=== PATIENT | female | born 1985 | race African-American/Black ===

== ENCOUNTER 2016-11-14 01:27 | Inpatient (IN) | payer MEDICARE, OTHER ==
[~2016-11-14] VITALS: Ht 170.2 cm; Wt 130.6 kg
[~2016-11-14 01:27] MED LIST: ALBU1AER INH; GLIP5 PO; HALO10 PO; HALO100P IM; LISI5 PO; LITH450 PO
[2016-11-14 01:29] VITALS: BP 133/89; PULSE 77; RESP 16; TEMP 97.9; O2SAT 96
[2016-11-14] MEDS ORDERED: GLIP5 PO (03:40)
[2016-11-14] MEDS ORDERED: HALO100P IM (03:40)
[2016-11-14] MEDS ORDERED: ALBUAER3 INH (03:40)
[2016-11-14] MEDS ORDERED: LISI-519 PO (03:40)
[2016-11-14] MEDS ORDERED: LITH300T3 PO (03:40)
--- NOTE | 2016-11-14 04:09 | PD ---
HPI Chief Complaint: Psychiatric Symptoms Time Seen by Provider: 04:04 Travel History International Travel<30 days: No Contact w/Intl Traveler<30days: No Traveled to known affect area: No History of Present Illness HPI 31-year-old black female presents to emergency department requesting psychological evaluation. She states that she has a history of schizoaffective disorder. She takes Haldol decanoate shots and lithium. She states that she's been compliant with her medications. She states that she got her last shot approximately 2 weeks ago. She is noted some increase side effects of her Haldol which included movement disorder which she takes Cogentin. She also states that in the last 2 days she's had increasing auditory hallucinations. She states that she hears people talking to her. She has caught herself talking back to herself. She comes in for evaluation. She denies any bad thoughts. She states that the voices are not seeing anything intrusive or concerning. No homicidal or suicidal ideation. She states that she is merely here because of the hallucinations. PFSH Past Medical History Hx Anticoagulant Therapy: No Arthritis: No Asthma: No Autoimmune Disease: No Blood Disorders: No Bipolar Disorder: Yes Anxiety: Yes Depression: Yes Heart Rhythm Problems: No Cancer: No Cardiovascular Problems: Yes (HTN) High Cholesterol: No Chemotherapy: No Chest Pain: No Congestive Heart Failure: No COPD: No Cerebrovascular Accident: No Diabetes: Yes Patient Takes Glucophage: No Diminished Hearing: No Deep Vein Thrombosis: Yes Endocrine: Yes Gastrointestinal Disorders: No GERD: No Genitourinary: No Headaches: Yes Hepatitis: No Hiatal Hernia: No Hypertension: Yes Immune Disorder: No Implanted Vascular Access Dvce: No Musculoskeletal: No Neurologic: No Psychiatric: Yes (SCHIZOPHRENIA) Reproductive: Yes (ABD MASS, OVARIAN MASS) Respiratory: No Immunizations Current: Yes Migraines: Yes Myocardial Infarction: No Radiation Therapy: No Renal Failure: No Schizophrenia: Yes (schizoaffective) Seizures: No Sleep Apnea: No Ulcer: No Tetanus Vaccination: < 5 Years ?: Not LMP: 5 YRS AGO Menopausal: No : 1 Para: 1 Miscarriage: 0 : 0 Past Surgical History AICD: No Section: Yes (2009) Cholecystectomy: No Gynecologic Surgery: No Hysterectomy: No Joint Replacement: No Pacemaker: No Other Surgery: Yes (left salpingo oopherectomy with lysis of adhesions) Social History Alcohol Use: Yes (OCCASIONAL) Tobacco Use: Yes (1PPD) Substance Use: Yes (marijuana) Allergies-Medications (Allergen,Severity, Reaction): Coded Allergies: Penicillin (Verified Allergy, Unknown, WAS TOLD A CHILD SHE HAD A REACTION BUT UNKNOWN, 11/14/16) Reported Meds & Prescriptions Reported Meds & Active Scripts Active Reported [place] Carbonate 300 Mg Tab 900 Mg PO HS Lisinopril 5 Mg Tab 5 Mg PO DAILY Haldol Decanoate Inj (Haloperidol Decanoate) 100 Mg/Ml Inj 300 Mg IM Q28D Glucotrol (Glipizide) 5 Mg Tab 5 Mg PO DAILY Take 30 minutes before a meal Proair Hfa 8.5 GM Inh (Albuterol Sulfate) 90 Mcg/Act Aer 2 Puff INH QID PRN 108 mcg/actuation Review of Systems Except as stated in HPI: all other systems reviewed are Neg General / Constitutional: No: Fever, Chills Eyes: No: Blurred Vision, Pain HENT: No: Headaches, Sore Throat Cardiovascular: No: Chest Pain or Discomfort, Palpitations Respiratory: No: Cough, Shortness of Breath Gastrointestinal: No: Nausea, Vomiting, Abdominal Pain Genitourinary: No: Frequency, Dysuria Musculoskeletal: No: Arthralgias, Pain Skin: No Rash, No Lumps Neurologic: Positive: Tremor, No: Weakness, Paresthesia Psychiatric: Positive: Disorder of Thought, Substance Abuse, No: Anxiety, Depression, Suicidal Ideations, Mood Disorder, Homicidal Ideation Physical Exam Narrative GENERAL: Well-nourished, well-developed patient. SKIN: Warm and dry. HEAD: Normocephalic and atraumatic. EYES: No scleral icterus. No injection or drainage. ENT: No nasal drainage noted. Mucous membranes pink. Airway patent. NECK: Supple, trachea midline. Moves head freely without obvious discomfort. CARDIOVASCULAR: Regular rate and rhythm without murmurs, gallops, or rubs. RESPIRATORY: Breath sounds equal bilaterally. No accessory muscle use. Few scattered rhonchi. GASTROINTESTINAL: Abdomen soft, non-tender, nondistended. EXTREMITIES: No cyanosis or edema. BACK: Nontender without obvious deformity. No CVA tenderness. NEURO: Patient is alert and oriented. no sensorimotor deficits. Nonfocal. Normal speech. PSYCH: No delusions. Positive auditory but no visual hallucinations. Data Data Last Documented VS Vital Signs Date Time Temp Pulse Resp B/P Pulse Ox O2 Delivery O2 Flow Rate FiO2 11/14/16 01:29 97.9 77 16 133/89 96 Room Air Orders Complete Blood Count With Diff (11/14/16 04:00) Comprehensive Metabolic Panel (11/14/16 04:00) Drug Screen, Random Urine (11/14/16 04:00) Alcohol (Ethanol) (11/14/16 04:00) Salicylates (Aspirin) (11/14/16 04:00) Tylenol (Acetaminophen) (11/14/16 04:00) Psych Screen (11/14/16 04:00) [place] (Li) (11/14/16 04:00) Ed Urine Pregnancytest Poc (11/14/16 04:00) Labs Laboratory Tests Test 11/14/16 04:35 White Blood Count 8.4 TH/MM3 Red Blood Count 5.37 MIL/MM3 Hemoglobin 14.8 GM/DL Hematocrit 44.4 % Mean Corpuscular Volume 82.7 FL Mean Corpuscular Hemoglobin 27.7 PG Mean Corpuscular Hemoglobin 33.5 % Concent Red Cell Distribution Width 13.9 % Platelet Count 214 TH/MM3 Mean Platelet Volume 8.8 FL Neutrophils (%) (Auto) 49.9 % Lymphocytes (%) (Auto) 40.8 % Monocytes (%) (Auto) 5.8 % Eosinophils (%) (Auto) 2.9 % Basophils (%) (Auto) 0.6 % Neutrophils # (Auto) 4.2 TH/MM3 Lymphocytes # (Auto) 3.4 TH/MM3 Monocytes # (Auto) 0.5 TH/MM3 Eosinophils # (Auto) 0.2 TH/MM3 Basophils # (Auto) 0.1 TH/MM3 CBC Comment DIFF FINAL Differential Comment Sodium Level 139 MEQ/L Potassium Level 4.1 MEQ/L Chloride Level 103 MEQ/L Carbon Dioxide Level 30.7 MEQ/L Anion Gap 5 MEQ/L Blood Urea Nitrogen 12 MG/DL Creatinine 0.98 MG/DL Estimat Glomerular Filtration 80 ML/MIN Rate Random Glucose 113 MG/DL Calcium Level 9.4 MG/DL Total Bilirubin 0.2 MG/DL Aspartate Amino Transf 16 U/L (AST/SGOT) Alanine Aminotransferase 38 U/L (ALT/SGPT) Alkaline Phosphatase 100 U/L Total Protein 7.9 GM/DL Albumin 4.0 GM/DL Salicylates Level 3.1 MG/DL Urine Opiates Screen NEG Acetaminophen Level LESS THAN 2.0 MCG/ML Urine Barbiturates Screen NEG Urine Amphetamines Screen NEG Urine Benzodiazepines Screen NEG [place] Level 0.4 MEQ/L Urine Cocaine Screen NEG Urine Cannabinoids Screen POS Ethyl Alcohol Level LESS THAN 3 MG/DL MDM Medical Decision Making Medical Screen Exam Complete: Yes Emergency Medical Condition: Yes Medical Record Reviewed: Yes Interpretation(s) Laboratory Tests Test 11/14/16 04:35 White Blood Count 8.4 TH/MM3 Red Blood Count 5.37 MIL/MM3 Hemoglobin 14.8 GM/DL Hematocrit 44.4 % Mean Corpuscular Volume 82.7 FL Mean Corpuscular Hemoglobin 27.7 PG Mean Corpuscular Hemoglobin 33.5 % Concent Red Cell Distribution Width 13.9 % Platelet Count 214 TH/MM3 Mean Platelet Volume 8.8 FL Neutrophils (%) (Auto) 49.9 % Lymphocytes (%) (Auto) 40.8 % Monocytes (%) (Auto) 5.8 % Eosinophils (%) (Auto) 2.9 % Basophils (%) (Auto) 0.6 % Neutrophils # (Auto) 4.2 TH/MM3 Lymphocytes # (Auto) 3.4 TH/MM3 Monocytes # (Auto) 0.5 TH/MM3 Eosinophils # (Auto) 0.2 TH/MM3 Basophils # (Auto) 0.1 TH/MM3 CBC Comment DIFF FINAL Differential Comment Sodium Level 139 MEQ/L Potassium Level 4.1 MEQ/L Chloride Level 103 MEQ/L Carbon Dioxide Level 30.7 MEQ/L Anion Gap 5 MEQ/L Blood Urea Nitrogen 12 MG/DL Creatinine 0.98 MG/DL Estimat Glomerular Filtration 80 ML/MIN Rate Random Glucose 113 MG/DL Calcium Level 9.4 MG/DL Total Bilirubin 0.2 MG/DL Aspartate Amino Transf 16 U/L (AST/SGOT) Alanine Aminotransferase 38 U/L (ALT/SGPT) Alkaline Phosphatase 100 U/L Total Protein 7.9 GM/DL Albumin 4.0 GM/DL Salicylates Level 3.1 MG/DL Urine Opiates Screen NEG Acetaminophen Level LESS THAN 2.0 MCG/ML Urine Barbiturates Screen NEG Urine Amphetamines Screen NEG Urine Benzodiazepines Screen NEG [place] Level 0.4 MEQ/L Urine Cocaine Screen NEG Urine Cannabinoids Screen POS Ethyl Alcohol Level LESS THAN 3 MG/DL Differential Diagnosis MDM: High Differential diagnoses: Schizophrenia, schizoaffective disorder, bipolar, anxiety, depression, adjustment reaction, mood disorder NOS, ODD, depressive disorder NOS, dementia, dementia with agitation, psychosis NOS, substance induced mood disorder, intermittent explosive disorder, Asperger syndrome, infection,electrolyte abnormality, malingering. Narrative Course Mental health screening discussed with the patient. Psychiatric screen ordered. The patient is been medically cleared. This is schizoaffective Diagnosis Primary Impression: Schizoaffective disorder Condition: Stable Devin Kelly Nov 14, 2016 04:09
[2016-11-14 05:14] LABS: AUTOMATED NEUTROPHIL # 4.2 TH/MM3 (1.8-7.7); BASOPHIL # 0.1 TH/MM3 (0-0.2); BASOPHIL % 0.6 % (0.0-2.0); EOSINOPHIL # 0.2 TH/MM3 (0-0.4); EOSINOPHIL % 2.9 % (0.0-4.0); HEMATOCRIT 44.4 % (35.0-46.0); HEMO FLAGS DIFF FINAL; LYMPH % 40.8 % (9.0-44.0); LYMPHOCYTE # 3.4 TH/MM3 (1.0-4.8); MEAN CELL VOLUME 82.7 FL (80.0-100.0); MEAN CORPUSCULAR HEMOGLOBIN 27.7 PG (27.0-34.0); MEAN CORPUSCULAR HGB CONC 33.5 % (32.0-36.0); MONO % 5.8 % (0.0-8.0); NEUT % 49.9 % (16.0-70.0); PLATELET COUNT 214 TH/MM3 (150-450); RED BLOOD COUNT 5.37 MIL/MM3 (4.00-5.30); RED CELL DISTRIBUTION WIDTH 13.9 % (11.6-17.2); WHITE BLOOD COUNT 8.4 TH/MM3 (4.0-11.0)
[2016-11-14 05:27] LABS: AMPHETAMINE, URINE NEG (NEG); BARBITURATES, URINE NEG (NEG); COCAINE, URINE NEG (NEG)
[2016-11-14 05:32] LABS: ALT (GPT) 38 U/L (10-53); ANION GAP 5 MEQ/L (5-15); AST (GOT) 16 U/L (15-37); BICARBONATE 30.7 MEQ/L (21.0-32.0); BLOOD UREA NITROGEN 12 MG/DL (7-18); CHLORIDE 103 MEQ/L (98-107); GLOMERULAR FILTRATION RATE 80 ML/MIN (>89); POTASSIUM 4.1 MEQ/L (3.5-5.1); SODIUM (NA) 139 MEQ/L (136-145)
[2016-11-14 05:34] LABS: ALKALINE PHOSPHATASE 100 U/L (45-117); TOTAL BILIRUBIN ADULT 0.2 MG/DL (0.2-1.0)
[2016-11-14 05:46] LABS: ACETAMINOPHEN LESS THAN 2.0 MCG/ML (10.0-30.0)
[2016-11-14 07:42] VITALS: BP 162/98; PULSE 64; RESP 20; TEMP 97.4; O2SAT 98
[2016-11-14] MEDS ORDERED: traZODone HCL 50 MG TAB PO PRN (08:15)
[2016-11-14] MEDS ORDERED: MAGNESIUM HYDROXIDE SUSP 30 ML CUP PO PRN (08:15)
[2016-11-14] MEDS ORDERED: ALUMINUM/MAGNESIUM/SIMETH 30 ML CUP PO PRN (08:15)
[2016-11-14] MEDS ORDERED: LORazepam 2 MG/ML VIAL IM PRN (08:15)
[2016-11-14] MEDS ORDERED: BENZTROPINE MESYLATE 1 MG TAB PO PRN (08:15)
[2016-11-14] MEDS ORDERED: BENZTROPINE MESYLATE 2 MG/2 ML VIAL IM PRN (08:15)
[2016-11-14] MEDS ORDERED: DEXTROSE 50% IN WATER 50 ML VIAL(D50) IV PUSH PRN (08:30)
[2016-11-14] MEDS ORDERED: GLUCAGON 1 MG/ML VIAL OTHER PRN (08:30)
[2016-11-14] MEDS ORDERED: ALBUTEROL SULFATE 90 MCG/ACT HFA 8 GM INHALER INH PRN (08:30)
[2016-11-14] MEDS: LISINOPRIL 5 MG TAB PO SCH (09:00)
[2016-11-14] MEDS: REMOVE OLD PATCH T-DERMAL SCH (09:00)
[2016-11-14] MEDS: glipiZIDE 5 MG TAB PO SCH (09:00)
[2016-11-14] MEDS: NICOTINE 21 MG/24 HR PATCH T-DERMAL SCH (09:00)
[2016-11-14 10:43] VITALS: BP 133/87; PULSE 87; RESP 18; TEMP 97.5
[2016-11-14] MEDS: INSULIN ASPART SUPPLEMENTAL SCALE SQ SCH ×3 (11:00→20:31)
--- NOTE | 2016-11-14 15:48 | HHI.HP ---
History & Physical H&P Date of admission: 11/14/2016 Admitting diagnoses: 1. Schizoaffective disorder, bipolar type 2. Cannabis abuse 3. Abnormal motor activity Legal status: Patient is voluntary and may consent for admission and medications. History of present illness: Ms. Doherty is a 31-year-old female with a history of schizoaffective disorder and cannabis abuse who presented on a voluntary basis to the emergency room with complaints of side effects from her Haldol Decanoate medication and also complaints of auditory hallucinations. Reviewing the electronic medical record, I note that the patient was last admitted here under my care in July 2015. Patient seen and examined with counselor Ayesha. Chart reviewed. Case discussed with nurse on the inpatient psychiatric unit. On my examination today , the patient reports that for about the last month or so she has noted increased motoric symptoms which she relates to her Haldol injection. She maintains that she has been adherent with her Haldol injections and receives 300 mg IM every month. She has noted rocking movements of the hip and trunk as well as a jittery feeling in her feet. There is no inner sense of restlessness or feeling like she is crawling out of her skin. She has not had any dystonic reactions. She is reportedly on Cogentin for this, but see below, and this has been partially effective. The patient also notes that she has been having "conversations in my head" and notes that she has been talking to herself. She says that she hears a voice inside her head asking if she believes in God. She denies any visual phenomena. She denies any command auditory hallucinations. Mood is somewhat depressed. She denies any SI or HI. The remainder of the psychiatric ROS is negative. Past psychiatric history: Patient reports that she has been following at [facility]. She says that her last psychiatric admission was here in 2014. She denies any interval suicide attempts. I did place a call to [facility] myself to confirm her outpatient medication regimen and spoke with the nurse there. The patient apparently takes trazodone 100 mg at bedtime, lithium 900 mg at bedtime and Haldol decanoate 300 mg every 4 weeks. There is also an order for BuSpar at that dose and strength is not specified. Nurse at [facility] notes that the last time the Haldol Decanoate was filled was in August 2016 but the patient does have an appointment for injection on November 27. Family history: This is unchanged from previous assessment. Chemical dependency history: Patient admits to occasional use of cannabis but says that she hasn't smoked in a week or so. She denies any other substance use. Social history: Patient reports that she is presently living independently but has been helping out her mother who recently had an amputation. She receives a disability income. She is high school educated and also has some college. She denies any or legal history. She has a [id number] daughter. She denies any access to guns or firearms. Past medical history: Includes a history of hypertension and diabetes managed by her primary care doctor. Medications: Include psychotropics as detailed above as well as glipizide and lisinopril for the management of diabetes and hypertension, respectively. Allergies: Includes an allergy to penicillin Review of systems: Besides the motoric issues noted above, no reported headache, vision or hearing changes, chest pain, shortness of breath or bowel or bladder issues. No other somatic complaints. Physical examination: A physical examination was completed in the emergency room by the ER staff and the patient was medically cleared. On my examination today, the patient appears to be in no acute physical distress. I can detect no hand tremor, no cogwheeling, no masked facies, no dystonias. She does exhibit some occasional rocking movements at the waist and possibly some tongue darting movements, although the patient says that her mouth is just dry. No other motoric abnormalities noted. Labs and vital signs reviewed: Item Value Date Time Patient Temperature 97.5 degrees F L 11/14/16 1043 Temperature Source Oral 11/14/16 1043 Pulse Rate 87 bpm 11/14/16 1043 Respiratory Rate 18 bpm 11/14/16 1043 Blood Pressure Assessment 133/87 (102) 11/14/16 1043 Location L Arm Source Automatic Cuff Position Sitting Oxygen Delivery Method Room Air 11/14/16 0742 Bedside Pulse Oximetry 98 % 11/14/16 0742 Item Value Date Time White Blood Count 8.4 TH/MM3 11/14/16 0435 Hemoglobin 14.8 GM/DL 11/14/16 0435 Platelet Count 214 TH/MM3 11/14/16 0435 Sodium Level 139 MEQ/L 11/14/16 0435 Potassium Level 4.1 MEQ/L 1/10/17 0435 Chloride Level 103 MEQ/L 11/14/16434 Carbon Dioxide Level 30.7 MEQ/L 11/14/16434 Blood Urea Nitrogen 12 MG/DL 11/14/16434 Creatinine 0.98 MG/DL 11/14/16434 Aspartate Amino Transf (AST/SGOT) 16 U/L 11/14/16434 Alanine Aminotransferase (ALT/SGPT) 38 U/L 11/14/16434 Alkaline Phosphatase 100 U/L 11/14/16434 Beta HCG, Qualitative LESS THAN 1 MIU/ML 11/14/16434 [place] Level 0.4 MEQ/L L 11/14/16434 Urine Cannabinoids Screen POS H 11/14/16434 Ethyl Alcohol Level LESS THAN 3 MG/DL 11/14/16434 Mental status examination: Patient is in hospital gown. She is well groomed. She is awake and alert and oriented 3. Motoric exam as above. Steady gait and station. Speech is within normal limits for rate, tone and volume. Language and fund of knowledge seem adequate and appropriate for age. Mood is mildly depressed and affect is full and reactive. Thought process linear. No loosening of associations. No evident delusions. Endorses some auditory phenomena as detailed above but no visual phenomena and no command auditory hallucinations. Denies suicidal or homicidal ideation. Insight and judgment are fair. Assessment and plan: This is a 31-year-old female with psychiatric history as detailed above who presents on a voluntary basis with complaints about psychotropic medication side effects and also auditory phenomena. Patient describes rocking movements of the trunk for about the last month or so in the absence of significant medication change and on exam does display some rocking as well as some possible tongue darting that could be related to a tardive dyskinesia picture. There is no evidence of EPS or akathisia on my history or exam. She also describes some mood issues and auditory phenomena, although it is not clear if these are antonella javier auditory hallucinations as they seem to occur exclusively inside her head. Patient seems to have experienced a significant, positive response to Haldol, and has managed a significant period outside of the hospital. I will ask the neurologist to evaluate the patient's movment complaints. If this does indeed represent TD, augmentation with low dose clozapine might ameliorate both the movement and psychiatric symptoms and allow us to reduce her Haldol burden. Patient requires psychiatric admission at this time for assessment, observation and stabilization. --Admit inpatient --Voluntary status --Consult to the neurologist regarding patient's movement issues --Continue patient's lithium at bedtime. Renal function okay. test negative. Check a TSH. --Continue patient's trazodone at bedtime --Clarify patient's BuSpar dosing --Clarify last dose of Haldol Decanoate --Ativan as needed for anxiety, Cogentin as needed for EPS, Benadryl as needed for sleep --Vitals every shift --Counselor to see --Disposition planning --Estimated length of stay: 5-7 days Adria Gu MD Nov 14, 2016 15:47
[2016-11-14 18:52] VITALS: BP 150/79; PULSE 76; RESP 18; TEMP 97.3; O2SAT 99
[2016-11-14] MEDS: LITHIUM CARBONATE 450 MG CONTROLLED RELEASE TAB PO SCH (20:31)
[2016-11-14] MEDS: traZODone HCL 50 MG TAB PO SCH (20:31)
[2016-11-14] MEDS: ACETAMINOPHEN 325 MG TAB PO PRN (20:36)
[2016-11-15] MEDS: LORazepam 1 MG TAB PO PRN ×3 (01:59→21:38)
[2016-11-15] MEDS: ACETAMINOPHEN 325 MG TAB PO PRN (04:12)
[2016-11-15 05:43] VITALS: BP 140/96; PULSE 70; RESP 18; TEMP 96.9; O2SAT 99
[2016-11-15] MEDS: INSULIN ASPART SUPPLEMENTAL SCALE SQ SCH ×6 (06:26→21:34)
[2016-11-15 06:58] LABS: ANION GAP 7 MEQ/L (5-15); BICARBONATE 28.9 MEQ/L (21.0-32.0); BLOOD UREA NITROGEN 13 MG/DL (7-18); CHLORIDE 103 MEQ/L (98-107); GLOMERULAR FILTRATION RATE 90 ML/MIN (>89); HDL CHOLESTEROL 61.6 MG/DL (40.0-60.0); LDL CHOLESTEROL 67 MG/DL (0-99); POTASSIUM 4.6 MEQ/L (3.5-5.1); SODIUM (NA) 139 MEQ/L (136-145)
[2016-11-15] MEDS: REMOVE OLD PATCH T-DERMAL SCH (09:00)
[2016-11-15] MEDS: LISINOPRIL 5 MG TAB PO SCH (09:01)
[2016-11-15] MEDS: glipiZIDE 5 MG TAB PO SCH (09:01)
[2016-11-15] MEDS: NICOTINE 21 MG/24 HR PATCH T-DERMAL SCH (09:03)
--- NOTE | 2016-11-15 13:30 | HHI.PYPN ---
Subjective Remarks Patient seen and examined with counselor. Chart reviewed. Case discussed with nursing staff. No behavioral issues noted. On my examination today, patient complains of some ongoing low mood. She continues to describe auditory phenomena of her siblings asking if she believes in God. She also continues to report abnormal truncal movements as detailed yesterday. No change in these. Denies side effects from medications. Neurological consultation has been ordered and is pending. Review of Systems Other No new physical complaints today Objective Alert: Yes [place]: Person, Place, Date, Situation Mood: Depressed Affect: Other (remains fairly full and reactive) Memory Intact: Comment (intact on clinical exam) Hallucinations: Auditory (auditory phenomena as detailed above), Visual (no VH) Delusions: No Delusion Type: Other (no delusions) Suicidal: Ideation (no SI) Homicidal: Ideation (no HI) Insight/Judgement Fair Remarks No new motoric abnormalities noted. Patient preferred to stand for the interview, and in this position I do not really appreciate any dyskinesias in the trunk. Thought process linear. Speech within normal limits for rate, tone and volume. Labs Test 11/15/16 06:06 Sodium Level 139 MEQ/L Potassium Level 4.6 MEQ/L Chloride Level 103 MEQ/L Carbon Dioxide Level 28.9 MEQ/L Anion Gap 7 MEQ/L Blood Urea Nitrogen 13 MG/DL Creatinine 0.88 MG/DL Estimat Glomerular Filtration 90 ML/MIN Rate Random Glucose 134 MG/DL Calcium Level 9.4 MG/DL Triglycerides Level 124 MG/DL Cholesterol Level 153 MG/DL LDL Cholesterol 67 MG/DL HDL Cholesterol 61.6 MG/DL Cholesterol/HDL Ratio 2.48 RATIO Labs reviewed. TSH within normal limits. Hemoglobin A1c is pending. Vitals/IOs Vital Signs Date Time Temp Pulse Resp B/P Pulse Ox O2 Delivery O2 Flow Rate FiO2 11/15/16 05:43 96.9 70 18 140/96 99 11/14/16 07:42 Room Air Assessment & Plan Problem List: (1) Schizoaffective disorder ICD Code: F25.9 (2) Abnormal motor activity ICD Code: R25.9 Assessment & Plan Patient continuing to complain of abnormal movements and depressive symptoms. Neurological consultation is pending. We discuss the risks and benefits of a trial of a minimally anti-dopaminergic antipsychotic to try to ameliorate patient's perceived movement symptoms, proceeding on the impression that these are dyskinetic in nature, and also possibly for mood stabilization. I did discuss Clozaril as an option, but the patient is reluctant to pursue this given the blood monitoring requirements. Seroquel might be a good alternative as it too is minimally anti-dopaminergic and has some data supporting its use to ameliorate TD, and it also has mood stabilizing potential. Patient prefers this option, and I will add Seroquel 25mg BID with plans to titrate to effect. Continue other medications and care as ordered. Justification for Cont. Inpt. Medication adjustments. Complicating conditions. Discharge Planning Pending stabilization Request HC Surrog/Guard Advoc?: No Problem Qualifiers (1) Schizoaffective disorder: Qualified Code: F25.0 - Schizoaffective disorder, bipolar type Adria Gu MD Nov 15, 2016 13:30
[2016-11-15] MEDS: IBUPROFEN 400 MG TAB PO PRN (16:16)
--- NOTE | 2016-11-15 16:38 | PD.CONS ---
History of Present Illness Service Neurology Consult Requested By psych Reason for Consult tardive dyskinesia Primary Care Physician Aj Garcia MD History of Present Illness 31 y/o f admitted for psychosis, in the psych unit. pt has been on injectable haldol for the past few months and states she was getting tremors and truncal movements recently. she is doing better since admission. reading the newspaper when i came in to see her. Past Family Social History Allergies: Coded Allergies: Penicillin (Verified Allergy, Unknown, WAS TOLD A CHILD SHE HAD A REACTION BUT UNKNOWN, 11/14/16) Active Ordered Medications Current Medications Medications (Trade) Dose Ordered Sig/Darrion Route Start Time Stop Time Status Last Admin (Ativan) 1 mg Q6H PRN PO 11/14/16 08:15 11/15/16 09:01 (Ativan Inj) 1 mg Q6H PRN IM 11/14/16 08:15 (Milk Of Magnesia Liq) 30 ml DAILY PRN PO 11/14/16 08:15 (Mag-Al Plus Susp Liq) 30 ml Q6H PRN PO 11/14/16 08:15 (Habitrol 21 Mg Patch.24 Hr) 1 patch DAILY T-DERMAL 11/14/16 09:00 11/15/16 09:03 (Cogentin) 1 mg Q12H PRN PO 11/14/16 08:15 (Cogentin Inj) 1 mg Q12H PRN IM 11/14/16 08:15 Miscellaneous Information 1 DAILY T-DERMAL 11/14/16 09:00 11/14/16 09:00 (Proair Hfa Inh) 2 puff QID PRN INH 11/14/16 08:30 (Glucotrol) 5 mg DAILY PO 11/14/16 09:00 11/15/16 09:01 (Prinivil) 5 mg DAILY PO 11/14/16 09:00 11/15/16 09:01 (D50w (Vial) Inj) 25 ml UNSCH PRN IV PUSH 11/14/16 08:30 (Glucagon Inj) 1 mg UNSCH PRN OTHER 11/14/16 08:30 (Desyrel) 100 mg HS PO 11/14/16 21:00 11/14/16 20:31 (Eskalith Sr) 900 mg HS PO 11/14/16 21:00 11/14/16 20:31 (Benadryl) 50 mg HS PRN PO 11/14/16 16:00 11/15/16 00:00 (SEROquel) 25 mg BID PO 11/15/16 21:00 (Motrin) 400 mg Q8H PRN PO 11/15/16 16:00 Family History htn, dm Social History denies illicit drug use, tob or etoh use at present Exam I&O / VS Vital Signs Date Time Temp Pulse Resp B/P Pulse Ox O2 Delivery O2 Flow Rate FiO2 11/15/16 05:43 96.9 70 18 140/96 99 11/14/16 18:52 97.3 76 18 150/79 99 General: No acute distress Eye: EOMI Respiratory: Non-labored respirations Neurologic: Alert, Oriented, CN II-XII intact Psychiatric: Cooperative, Appropriate mood & affect Exam Comments ox 3. follows motor request, mild facial hypomimia, sitting and was reading the paper when i saw her. no involuntary movements. no resting/postural tremor. mild ue rigidity, no focal weakness Review/Management Diagnosis/Plan: (1) Schizophrenia Plan: no involuntary movements observed, no tardive dyskinesia minimal parkinsonism on exam likely 2/2 dopamine blocking agents rec limit/avoid long-term anti-psychotic use as much as possible. alternative to haldol if possible. note she is now in lithium, seroquel and cogentin she appears to be doing better since psych md has changed her medications will sign off call if questions Problem Qualifiers (1) Schizophrenia: Qualified Code: F20.9 - Schizophrenia, unspecified type Heron Ramos MD Nov 15, 2016 16:38
[2016-11-15 17:15] LABS: HEMOGLOBIN A1a 1.3 %; HEMOGLOBIN Ao 82.9 %; HEMOGLOBIN F 1.9 %; HEMOGLOBIN LA1C 2.1 %; HEMOGLOBIN P3 3.8 %
[2016-11-15 19:27] VITALS: BP 119/77; PULSE 80; RESP 18; TEMP 97.4; O2SAT 100
[2016-11-15] MEDS: QUEtiapine FUMARATE 25 MG TAB PO SCH (21:00)
[2016-11-15] MEDS: LITHIUM CARBONATE 450 MG CONTROLLED RELEASE TAB PO SCH (21:00)
[2016-11-15] MEDS: traZODone HCL 50 MG TAB PO SCH (21:00)
[2016-11-15] MEDS: diphenhydrAMINE HCL 50 MG CAP PO PRN ×2 (21:38)
[2016-11-16 05:00] VITALS: BP 126/66; PULSE 76; RESP 17; TEMP 97.9
[2016-11-16] MEDS: INSULIN ASPART SUPPLEMENTAL SCALE SQ SCH ×3 (06:15→21:00)
[2016-11-16] MEDS: REMOVE OLD PATCH T-DERMAL SCH (09:00)
[2016-11-16] MEDS: glipiZIDE 5 MG TAB PO SCH (09:25)
[2016-11-16] MEDS: NICOTINE 21 MG/24 HR PATCH T-DERMAL SCH (09:25)
[2016-11-16] MEDS: QUEtiapine FUMARATE 25 MG TAB PO SCH ×3 (09:25→18:36)
[2016-11-16] MEDS: LISINOPRIL 5 MG TAB PO SCH (09:25)
--- NOTE | 2016-11-16 10:53 | HHI.PYPN ---
Subjective Remarks Patient seen and examined with counselor. Chart reviewed. Case discussed with nursing staff. On my examination today, patient complains of mild ongoing low mood but denies audiovisual hallucinations. She denies any subjective involuntary movements and I see that she has been evaluated by neurology who does not suspect tardive dyskinesia. No SI or HI. She denies side effects from medications. Review of Systems Other No reported physical complaints today Objective Alert: Yes [place]: Person, Place, Date, Situation Mood: Depressed (very mild) Affect: Other (full and reactive) Memory Intact: Comment (intact on clinical exam) Hallucinations: Other (denies AVH) Delusions: No Delusion Type: Other (no delusional material) Suicidal: Ideation (denies SI) Homicidal: Ideation (denies HI) Insight/Judgement Fair Remarks No motoric abnormalities noted. Thought process linear. Speech within normal limits For rate, tone and volume. Labs Test 11/16/16 06:52 [place] Level 0.6 MEQ/L Labs reviewed. Vitals/IOs Vital Signs Date Time Temp Pulse Resp B/P Pulse Ox O2 Delivery O2 Flow Rate FiO2 11/16/16 05:00 97.9 76 17 126/66 11/15/16 19:27 100 11/14/16 07:42 Room Air Assessment & Plan Problem List: (1) Schizoaffective disorder ICD Code: F25.9 Assessment & Plan Titrate Seroquel for additional mood stabilization. The hope is that this will also allow for a reduction in Haldol decanoate dose in the long-term. Patient maintains that she is on Wellbutrin on an outpatient basis but I will hold this is this could also be contributing to a sense of jitteriness. Continue other psychotropics as ordered. Neurology consultation noted and appreciated. Continue other medications and care as ordered. Justification for Cont. Inpt. Medication adjustments. Discharge Planning Monitor overnight. Request HC Surrog/Guard Advoc?: No Problem Qualifiers (1) Schizoaffective disorder: Qualified Code: F25.0 - Schizoaffective disorder, bipolar type Adria Gu MD Nov 16, 2016 10:53
[2016-11-16 18:41] VITALS: BP 130/87; PULSE 79; RESP 18; TEMP 97.8; O2SAT 96
[2016-11-16] MEDS: traZODone HCL 50 MG TAB PO SCH (21:21)
[2016-11-16] MEDS: LITHIUM CARBONATE 450 MG CONTROLLED RELEASE TAB PO SCH (21:21)
[2016-11-16] MEDS: diphenhydrAMINE HCL 50 MG CAP PO PRN (21:25)
[2016-11-16] MEDS: IBUPROFEN 400 MG TAB PO PRN (23:00)
[2016-11-17] MEDS: LORazepam 1 MG TAB PO PRN (04:26)
[2016-11-17 06:26] VITALS: BP 122/84; PULSE 83; RESP 18; TEMP 97.4; O2SAT 99
[2016-11-17] MEDS: INSULIN ASPART SUPPLEMENTAL SCALE SQ SCH ×3 (06:47→16:00)
[2016-11-17] MEDS: LISINOPRIL 5 MG TAB PO SCH (08:17)
[2016-11-17] MEDS: QUEtiapine FUMARATE 25 MG TAB PO SCH ×3 (08:17→17:51)
[2016-11-17] MEDS: glipiZIDE 5 MG TAB PO SCH (08:17)
[2016-11-17] MEDS: NICOTINE 21 MG/24 HR PATCH T-DERMAL SCH (08:18)
[2016-11-17] MEDS: REMOVE OLD PATCH T-DERMAL SCH (08:18)
[2016-11-17] MEDS ORDERED: TRAZ50TA12 PO (09:51)
[2016-11-17] MEDS ORDERED: QUET1TAB7 PO (09:51)
--- NOTE | 2016-11-17 09:52 | HHI.DS ---
Psychiatry Discharge Summary Inpatient Psychiatric care?: Yes Advance Directive: No Reason Not Provided: not done Mental Health AdvanceDirective: No Health Care Proxy: No Admission Admission Date Nov 14, 2016 at 08:15 Admission Diagnosis: (1) Schizoaffective disorder ICD Code: F25.9 (2) Cannabis abuse ICD Code: F12.10 (3) Abnormal motor activity ICD Code: R25.9 Brief History Ms. Doherty is a 31-year-old female with a history of schizoaffective disorder and cannabis abuse who presented on a voluntary basis to the emergency room with complaints of side effects from her Haldol Decanoate medication and also complaints of auditory hallucinations. Reviewing the electronic medical record, I note that the patient was last admitted here under my care in July 2015. Patient seen and examined with counselor Ayesha. Chart reviewed. Case discussed with nurse on the inpatient psychiatric unit. On my examination today , the patient reports that for about the last month or so she has noted increased motoric symptoms which she relates to her Haldol injection. She maintains that she has been adherent with her Haldol injections and receives 300 mg IM every month. She has noted rocking movements of the hip and trunk as well as a jittery feeling in her feet. There is no inner sense of restlessness or feeling like she is crawling out of her skin. She has not had any dystonic reactions. She is reportedly on Cogentin for this, but see below, and this has been partially effective. The patient also notes that she has been having "conversations in my head" and notes that she has been talking to herself. She says that she hears a voice inside her head asking if she believes in God. She denies any visual phenomena. She denies any command auditory hallucinations. Mood is somewhat depressed. She denies any SI or HI. The remainder of the psychiatric ROS is negative. Tobacco Use In Past 30 Days: 5 or More Cigarettes/Day Alcohol Use: Never Hospital Course Patient was admitted to a locked, inpatient psychiatric unit. A neurological consultation was obtained for patient's complaints of abnormal movements, but no significant abnormality was found and neurologist did not feel that the patient had significant tardive dyskinesia. Appropriate precautions were in place throughout patient's hospital stay. Patient was seen and examined daily on the unit by psychiatry and also visited by counselor. Medications were adjusted. Patient tolerated medication changes well without side effects. Patient had improvement in her presenting psychiatric symptomatology. Her subjective perception of movements also improved. There was no evidence of any suicidality or homicidality on the inpatient unit. Patient remained in good behavioral control and was medication compliant. On the day of discharge: Patient seen and examined with counselor. Case discussed with nursing staff. No problematic behaviors to note. On my examination today, the patient reports that her mood is improved versus admission. She denies any SI, HI or AVH. No evidence of unstable psychosis. Tolerating medications well without side effects. Feels improved with addition of Seroquel. No physical complaints today. Weighing the acute, chronic, and protective factors and based on the available evidence, I supreme court judge to a reasonable degree of medical certainty that the patient is at low imminent risk of harm to self or others from mental illness and her level of function appears to be adequate for outpatient care. Patient has maximized benefit from this inpatient psychiatric hospital stay will be discharged today in stable condition with psychiatric follow-up as arranged by counselor. Patient is also to follow-up with primary care. I have reminded the patient to return to the psychiatric emergency room for any concerning psychiatric symptoms as part of a general safety plan. Results Blood Pressure 122 / 84 Vital Signs Date Time Temp Pulse Resp B/P Pulse Ox O2 Delivery O2 Flow Rate FiO2 11/17/16 06:26 97.4 83 18 122/84 99 11/14/16 07:42 Room Air Laboratory Tests Test 11/15/16 06:06 Random Glucose 134 MG/DL (74-106) Hemoglobin A1c 6.5 % (4.3-6.0) HDL Cholesterol 61.6 MG/DL (40.0-60.0) Laboratory Results Test 11/15/16 11/16/16 06:06 06:52 Hemoglobin A1c 6.5 % (4.3-6.0) Triglycerides Level 124 MG/DL (42-150) Cholesterol Level 153 MG/DL (120-200) LDL Cholesterol 67 MG/DL (0-99) HDL Cholesterol 61.6 MG/DL (40.0-60.0) [place] Level 0.6 MEQ/L (0.5-1.5) Summary of Procedures None done Imaging None done Pending results at discharge: No Medications # of Antipsychotic meds at D/C: 2 Appropriate >1 Antipsych meds?: 4 Approp Antipsych med options 1 - Minimum of three failed multiple trials of monotherapy. 2 - Documented plan to taper to monotherapy due to previous use of multiple meds OR cross-taper in progress at D/C. 3 - Documentation of augmentation of Clozapine. 4 - Justification other than those listed in allowable values 1-3, document here : Addition of minimally anti-dopaminergic antipsychotic to high-dose Haldol. Discharge Discharge Date: Nov 17, 2016 Discharge Diagnosis: (1) Schizoaffective disorder Diagnosis: Principal (stable) ICD Code: F25.9 (2) Cannabis abuse Diagnosis: Secondary ICD Code: F12.10 (3) Abnormal motor activity Diagnosis: Secondary (resolved) ICD Code: R25.9 GAF on discharge is 60 Mental Status Exam at Disch Patient is in hospital gown. She is well groomed. She is awake and alert and oriented to person and hospital at least. No abnormal motor movements noted. Speech is within normal limits for rate, tone and volume. Language and fund of knowledge seem adequate and appropriate for age. Mood is improved versus admission and affect is bright, full and reactive. Thought process linear. No loosening of associations. No evident delusions. Denies audiovisual hallucinations. Denies suicidal or homicidal ideation. Insight and judgment are fair. Pt Condition on Discharge: Stable Discharge Disposition: Discharge Home Discharge Instructions Diet Instructions: Diabetic Diet Activities you can perform: Weight Bearing as [place] Scheduled Appointment: as per counselor's notes New Medications: Quetiapine (Quetiapine) 25 Mg Tab 25 MG PO TID Mental Health Days 15 Ref 1 TAB Trazodone (Trazodone) 50 Mg Tab 100 MG PO HS Order is to update med rec only. Pt has supply at home. Mental Health Days 0 Ref 0 TAB Continued Medications: Albuterol 8.5 GM Inh (Proair Hfa 8.5 GM Inh) 90 Mcg/Act Aer 2 PUFF INH QID 108 mcg/actuation PRN SHORTNESS OF BREATH #1 Ref 0 INHALER Glipizide (Glucotrol) 5 Mg Tab 5 MG PO DAILY Take 30 minutes before a meal Blood Sugar Management #30 Ref 0 TAB Haloperidol Decanoate Inj (Haldol Decanoate Inj) 100 Mg/Ml Inj 300 MG IM Q28D Schizophrenia #1 Ref 0 VIAL Lisinopril (Lisinopril) 5 Mg Tab 5 MG PO DAILY Blood Pressure Management #30 Ref 0 TAB [place] Carbonate ([place] Carbonate) 300 Mg Tab 900 MG PO HS Ref 0 TAB Discharge Time <= 30 minutes Discharge/Advance Care Plan Health Problems: (1) Schizoaffective disorder Goals to promote your health * To prevent worsening of your condition and complications * To maintain your health at the optimal level Directions to meet your goals Take your medications as prescribed Follow your dietary instruction Follow activity as directed Keep your appointments as scheduled Take your immunizations and boosters as scheduled If your symptoms worsen call your PCP, if no PCP go to Urgent Care Center or Emergency Room For 28/05 questions related to your inpatient stay or results of tests pending at discharge, please contact Dr. Adria Gu at Smoking is Dangerous to Your Health. Avoid second hand smoking Problem Qualifiers (1) Schizoaffective disorder: Qualified Code: F25.0 - Schizoaffective disorder, bipolar type Adria Gu MD Nov 17, 2016 09:52
== END 2016-11-17 18:00 | disposition home or self-care (01) | DRG 885 ==
LOC: NEPB 01:27 → NEDA 08:15 → H270 09:50
PROVIDERS: ADMIT Psychiatry & Neurology Psychiatry; ATTEND Psychiatry & Neurology Psychiatry
DX: F25.0 Schizoaffective disorder, bipolar type (principal); E11.9 Type 2 diabetes mellitus without complications; I10 Essential (primary) hypertension; F12.10 Cannabis abuse, uncomplicated; Z79.84 Long term (current) use of oral hypoglycemic drugs; Z88.0 Allergy status to penicillin; R25.9 Unspecified abnormal involuntary movements; F17.210 Nicotine dependence, cigarettes, uncomplicated
CPT/HCPCS: 80048; 80053; 80061; 80178; 80307; 80320; 80329; 82948; 83036; 84443; 84703; 85025; 99285; G0480; G0481; J1815; Q0163

== ENCOUNTER 2017-01-08 13:50 | Emergency (ER) | payer MEDICARE, OTHER ==
[~2017-01-08 13:50] MED LIST changes: -ALBU1AER INH; +ALBUAER3 INH; -HALO10 PO; +LISI-519 PO; -LISI5 PO; +LITH300T3 PO; -LITH450 PO; +QUET1TAB7 PO; +TRAZ50TA12 PO
[2017-01-08 13:51] VITALS: BP 158/95; PULSE 102; RESP 18; TEMP 99.5; O2SAT 98
== END 2017-01-08 16:16 | disposition left against medical advice (07) ==
LOC: NED 13:50
DX: R50.9 Fever, unspecified (principal)
CPT/HCPCS: 99281

== ENCOUNTER 2017-07-07 17:13 | Emergency (ER) | payer MEDICARE, OTHER ==
[~2017-07-07] VITALS: Ht 170.2 cm; Wt 140.0 kg
[2017-07-07 17:16] VITALS: BP 137/85; PULSE 96; RESP 15; TEMP 98.2; O2SAT 98
--- NOTE | 2017-07-07 17:28 | PD ---
HPI Chief Complaint: Cold / Flu Symptoms Time Seen by Provider: 17:27 Travel History International Travel<30 days: No Contact w/Intl Traveler<30days: No Traveled to known affect area: No History of Present Illness HPI 32-year-old female came to the emergency room with history of cough that's been going on for past 1 month. Patient smokes one pack of cigarettes per day. No history of fever or chills. She says at this point the cough is so bad that she has been unable to stop coughing and has had posttussive emesis. Vital signs are stable. The cough is mostly dry she says. No phlegm. PFSH Past Medical History Narrative Medical List of her past medical, surgical, social and family history is reviewed from the nursing note. Hx Anticoagulant Therapy: No Arthritis: No Asthma: No Autoimmune Disease: No Blood Disorders: No Bipolar Disorder: Yes Anxiety: Yes Depression: Yes Heart Rhythm Problems: No Cancer: No Cardiovascular Problems: Yes (HBP) High Cholesterol: No Chemotherapy: No Chest Pain: No Congestive Heart Failure: No COPD: No Cerebrovascular Accident: No Diabetes: Yes Patient Takes Glucophage: No Diminished Hearing: No Deep Vein Thrombosis: Yes Endocrine: Yes Gastrointestinal Disorders: No GERD: No Genitourinary: No Headaches: No Hepatitis: No Hiatal Hernia: No Hypertension: Yes Immune Disorder: No Implanted Vascular Access Dvce: No Musculoskeletal: No Neurologic: No Psychiatric: Yes Reproductive: No Respiratory: No Immunizations Current: Yes Migraines: Yes Myocardial Infarction: No Radiation Therapy: No Renal Failure: No Schizophrenia: Yes (schizoaffective) Seizures: No Sleep Apnea: No Ulcer: No Tetanus Vaccination: > 5 Years Influenza Vaccination: No ?: Not LMP: 05/19/17 Menopausal: No : 1 Para: 1 Miscarriage: 0 : 0 Past Surgical History Abdominal Surgery: No AICD: No Arteriovenous Shunt: No Cardiac Surgery: No Section: Yes (2009) Cholecystectomy: No Ear Surgery: No Endocrine Surgery: Yes Eye Surgery: No Genitourinary Surgery: No Gynecologic Surgery: Yes () Hysterectomy: No Insulin Pump: No Joint Replacement: No Oral Surgery: No Pacemaker: No Thoracic Surgery: No Other Surgery: Yes (left salpingo oopherectomy with lysis of adhesions) Social History Alcohol Use: Yes (OCCASIONAL) Tobacco Use: Yes (1PPD) Substance Use: No Allergies-Medications (Allergen,Severity, Reaction): Coded Allergies: penicillin G (Unverified Allergy, Intermediate, hives, 07/07/17) Comments List of her allergies reviewed from the nursing note. Reported Meds & Prescriptions Reported Meds & Active Scripts Active Ventolin Hfa 18 GM Inh (Albuterol Sulfate) 90 Mcg/Act Aer 2 Puff INH Q4-6H PRN Trazodone (Trazodone HCl) 50 Mg Tab 100 Mg PO HS 0 Days Order is to update med rec only. Pt has supply at home. Quetiapine (Quetiapine Fumarate) 25 Mg Tab 25 Mg PO TID 15 Days Reported Lisinopril 5 Mg Tab 5 Mg PO DAILY Haldol Decanoate Inj (Haloperidol Decanoate) 100 Mg/Ml Inj 300 Mg IM Q28D Glucotrol (Glipizide) 5 Mg Tab 5 Mg PO DAILY Take 30 minutes before a meal Narrative Medication List of her home medications reviewed from the nursing note. Review of Systems Except as stated in HPI: all other systems reviewed are Neg Physical Exam Narrative GENERAL: Awake, alert, morbidly obese, no obvious distress SKIN: Focused skin assessment warm/dry. HEAD: Atraumatic. Normocephalic. EYES: Pupils equal and round. No scleral icterus. No injection or drainage. ENT: No nasal bleeding or discharge. Mucous membranes pink and moist. NECK: Trachea midline. No JVD. CARDIOVASCULAR: Regular rate and rhythm. No murmur appreciated. RESPIRATORY: No accessory muscle use. Clear to auscultation. Breath sounds equal bilaterally. GASTROINTESTINAL: Abdomen soft, non-tender, nondistended. Hepatic and splenic margins not palpable. MUSCULOSKELETAL: No obvious deformities. No clubbing. No cyanosis. No edema. NEUROLOGICAL: Awake and alert. No obvious cranial nerve deficits. Motor grossly within normal limits. Normal speech. PSYCHIATRIC: Appropriate mood and affect; insight and judgment normal. Data Data Last Documented VS Vital Signs Date Time Temp Pulse Resp B/P (MAP) Pulse Ox O2 Delivery O2 Flow Rate FiO2 07/07/17 19:17 07/07/17 17:22 18 99 Room Air 07/07/17 17:16 98.2 96 Orders Orders Chest, Pa & Lat (07/07/17 ) [facility] Medical Decision Making Medical Screen Exam Complete: Yes Emergency Medical Condition: Yes Medical Record Reviewed: Yes Differential Diagnosis Bronchitis, smoking cessation, atypical pneumonitis Narrative Course 7 PM chest x-ray finding came back and is within normal limits. She'll be discharged home. She was given instructions by me to stop smoking in order to get completely better. She understands. Procedures EKG Prior to Arrival: No Diagnosis Primary Impression: Bronchitis Additional Impressions: Needs smoking cessation education Chronic cough Referrals: Primary Care Physician Additional Instructions: Use inhaler prescribed to you 2 puffs every 4-6 hours for next 24-48 hours. To that use as per the symptoms. You must stop smoking otherwise a cough will not completely get better. Follow up with your primary care. Med/Other Pt SpecificInfo: Prescription(s) given Scripts Albuterol 18 GM Inh (Ventolin Hfa 18 GM Inh) 90 Mcg/Act Aer 2 PUFF INH Q4-6H Y for SHORTNESS OF BREATH, #1 INHALER 0 Refills Prov: Chris Lewis MD 07/07/17 Disposition: 01 DISCHARGE HOME Condition: Stable Chris Lewis MD Jul 07, 2017 17:28
--- NOTE | 2017-07-07 19:01 | RADRPT ---
EXAM DATE/TIME: 07/07/2017 18:04 [place] COMPARISON: CHEST PA & LAT, November 19, 2013, 10:22. INDICATIONS : Cough MEDICAL HISTORY : None. SURGICAL HISTORY : None. ENCOUNTER: Initial ACUITY: 1 day PAIN SCORE: 5/10 LOCATION: Bilateral chest FINDINGS: PA and lateral views of the chest demonstrate the lungs to be symmetrically aerated without evidence of mass, infiltrate or effusion. The cardiomediastinal contours are unremarkable. Osseous structure s are intact. CONCLUSION: No acute disease. Lobito Limon MD FACR on July 07, 2017 at 18:59 Board Certified Radiologist. This report was verified electronically.
[2017-07-07] MEDS ORDERED: VENTAER INH (19:06)
== END 2017-07-07 19:18 | disposition home or self-care (01) ==
LOC: NEPD 17:13
DX: J40 Bronchitis, not specified as acute or chronic (principal); F17.210 Nicotine dependence, cigarettes, uncomplicated
CPT/HCPCS: 71020; 99283

== ENCOUNTER 2018-03-22 17:23 | Inpatient (IN) | payer MEDICARE, OTHER ==
[~2018-03-22] VITALS: Ht 170.2 cm; Wt 128.3 kg
[~2018-03-22 17:23] MED LIST changes: -ALBUAER3 INH; -LITH300T3 PO; +VENTAER INH
[2018-03-22 17:45] VITALS: BP 131/99; PULSE 97; RESP 20; TEMP 98.9
--- NOTE | 2018-03-22 17:54 | PD ---
HPI Chief Complaint: Psychiatric Symptoms Time Seen by Provider: 17:36 Travel History International Travel<30 days: No Contact w/Intl Traveler<30days: No Traveled to known affect area: No History of Present Illness HPI 33-year-old female presents to the emergency department under expert take her order for psychiatric evaluation. Court order was written by her mother and sisters. They state that she has been using drugs and has been delusional. The patient denies any thoughts of hurting herself or anybody else. She states she was taking metformin and hypertension medications, but is not taking them now. She does state that she is buying methadone off the street. She also states that people are spiking her drinks with illicit drugs. Patient has no medical complaints at this time. Patient is alert and oriented to person, place , time. Moderate severity peer PFSH Past Medical History Hx Anticoagulant Therapy: No Arthritis: No Asthma: No Autoimmune Disease: No Blood Disorders: No Bipolar Disorder: Yes Anxiety: Yes Depression: Yes Heart Rhythm Problems: No Cancer: No Cardiovascular Problems: Yes (heart murmur) High Cholesterol: No Chemotherapy: No Chest Pain: No Congestive Heart Failure: No COPD: No Cerebrovascular Accident: No Diabetes: Yes Diminished Hearing: No Deep Vein Thrombosis: Yes Endocrine: Yes Gastrointestinal Disorders: No GERD: No Genitourinary: No Headaches: No Hepatitis: No Hiatal Hernia: No Hypertension: Yes Immune Disorder: No Implanted Vascular Access Dvce: No Musculoskeletal: No Neurologic: No Psychiatric: Yes Reproductive: No Respiratory: No Immunizations Current: Yes Migraines: Yes Myocardial Infarction: No Radiation Therapy: No Renal Failure: No Schizophrenia: Yes (schizoaffective) Seizures: No Sleep Apnea: No Ulcer: No ?: Unknown Menopausal: No : 1 Para: 1 Miscarriage: 0 : 0 Past Surgical History Abdominal Surgery: No AICD: No Arteriovenous Shunt: No Cardiac Surgery: No Section: Yes (2009) Cholecystectomy: No Ear Surgery: No Endocrine Surgery: Yes Eye Surgery: No Genitourinary Surgery: No Gynecologic Surgery: Yes () Hysterectomy: No Insulin Pump: No Joint Replacement: No Oral Surgery: No Pacemaker: No Thoracic Surgery: No Other Surgery: Yes (left salpingo oopherectomy with lysis of adhesions) Social History Alcohol Use: Yes (OCCASIONAL) Tobacco Use: Yes (1PPD) Substance Use: No Allergies-Medications (Allergen,Severity, Reaction): Coded Allergies: penicillin G (Unverified Allergy, Intermediate, hives, 07/07/17) Reported Meds & Prescriptions Reported Meds & Active Scripts Active Ventolin Hfa 18 GM Inh (Albuterol Sulfate) 90 Mcg/Act Aer 2 Puff INH Q4-6H PRN Trazodone (Trazodone HCl) 50 Mg Tab 100 Mg PO HS 0 Days Order is to update med rec only. Pt has supply at home. Quetiapine (Quetiapine Fumarate) 25 Mg Tab 25 Mg PO TID 15 Days Reported Metformin (Metformin HCl) 500 Mg Tab 500 Mg PO BIDPC Lisinopril 5 Mg Tab 5 Mg PO DAILY Haldol Decanoate Inj (Haloperidol Decanoate) 100 Mg/Ml Inj 200 Mg IM Q28D Review of Systems Except as stated in HPI: all other systems reviewed are Neg Physical Exam Narrative GENERAL: Well-nourished, well-developed female patient, afebrile. Patient is alert oriented to person, place, time SKIN: Focused skin assessment warm/dry. HEAD: Normocephalic. Atraumatic. EYES: No scleral icterus. No injection or drainage. NECK: Supple, trachea midline. No JVD or lymphadenopathy. CARDIOVASCULAR: Regular rate and rhythm without murmurs, gallops, or rubs. RESPIRATORY: Breath sounds equal bilaterally. No accessory muscle use. Lung sounds are clear to auscultation. GASTROINTESTINAL: Abdomen soft, non-tender, nondistended. MUSCULOSKELETAL: No cyanosis, or edema. PSYCHIATRIC: No delusional thought processes. No hallucinations. Data Data Last Documented VS Vital Signs Date Time Temp Pulse Resp B/P (MAP) Pulse Ox O2 Delivery O2 Flow Rate FiO2 03/22/18 19:32 98.3 85 152/86 (108) 100 03/22/18 17:45 20 Orders Orders Complete Blood Count With Diff (03/22/18 17:51) Comprehensive Metabolic Panel (03/22/18 17:51) Thyroid Stimulating Hormone (03/22/18 17:51) Ed Urine Pregnancytest Poc (03/22/18 17:51) Psych Screen (03/22/18 17:51) Drug Screen, Random Urine (03/22/18 17:51) Alcohol (Ethanol) (03/22/18 17:51) Labs Laboratory Tests Test 03/22/18 17:50 03/22/18 17:55 Urine Opiates Screen NEG Urine Barbiturates Screen NEG Urine Amphetamines Screen NEG Urine Benzodiazepines Screen NEG Urine Cocaine Screen NEG Urine Cannabinoids Screen POS White Blood Count 6.8 TH/MM3 Red Blood Count 5.59 MIL/MM3 Hemoglobin 16.0 GM/DL Hematocrit 47.4 % Mean Corpuscular Volume 84.7 FL Mean Corpuscular Hemoglobin 28.6 PG Mean Corpuscular Hemoglobin Concent 33.7 % Red Cell Distribution Width 14.2 % Platelet Count 214 TH/MM3 Mean Platelet Volume 9.0 FL Neutrophils (%) (Auto) 56.6 % Lymphocytes (%) (Auto) 32.6 % Monocytes (%) (Auto) 6.2 % Eosinophils (%) (Auto) 3.5 % Basophils (%) (Auto) 1.1 % Neutrophils # (Auto) 3.9 TH/MM3 Lymphocytes # (Auto) 2.2 TH/MM3 Monocytes # (Auto) 0.4 TH/MM3 Eosinophils # (Auto) 0.2 TH/MM3 Basophils # (Auto) 0.1 TH/MM3 CBC Comment DIFF FINAL Differential Comment Blood Urea Nitrogen 10 MG/DL Creatinine 0.91 MG/DL Random Glucose 171 MG/DL Total Protein 7.5 GM/DL Albumin 3.8 GM/DL Calcium Level 9.4 MG/DL Alkaline Phosphatase 114 U/L Aspartate Amino Transf (AST/SGOT) 20 U/L Alanine Aminotransferase (ALT/SGPT) 39 U/L Total Bilirubin 0.1 MG/DL Sodium Level 141 MEQ/L Potassium Level 4.3 MEQ/L Chloride Level 108 MEQ/L Carbon Dioxide Level 22.4 MEQ/L Anion Gap 11 MEQ/L Estimat Glomerular Filtration Rate 86 ML/MIN Thyroid Stimulating Hormone 3rd Gen 0.820 uIU/ML Ethyl Alcohol Level LESS THAN 3 MG/DL [facility] Medical Decision Making Medical Screen Exam Complete: Yes Emergency Medical Condition: Yes Medical Record Reviewed: Yes Differential Diagnosis Substance abuse versus bipolar disorder versus schizophrenia versus depression versus anxiety Narrative Course 33-year-old female presents to the emergency department record ordered for psychiatric evaluation. CBC, CMP, TSH, alcohol level, urine drug screen, UPT are ordered and pending. CBC shows no acute abnormality. CMP shows hyperglycemia 171. TSH is 0.820. Alcohol level is less than 3. UDS is positive for cannabinoid. UPT is negative. Patient is medically cleared for psychiatric screening and disposition. Diagnosis Primary Impression: Medical clearance for psychiatric admission Condition: Stable ,Angela TOÑO March 22, 2018 17:54
[2018-03-22 18:10] LABS: AUTOMATED NEUTROPHIL # 3.9 TH/MM3 (1.8-7.7); BASOPHIL # 0.1 TH/MM3 (0-0.2); BASOPHIL % 1.1 % (0.0-2.0); EOSINOPHIL # 0.2 TH/MM3 (0-0.4); EOSINOPHIL % 3.5 % (0.0-4.0); HEMATOCRIT 47.4 % (35.0-46.0); LYMPH % 32.6 % (9.0-44.0); LYMPHOCYTE # 2.2 TH/MM3 (1.0-4.8); MEAN CELL VOLUME 84.7 FL (80.0-100.0); MEAN CORPUSCULAR HEMOGLOBIN 28.6 PG (27.0-34.0); MEAN CORPUSCULAR HGB CONC 33.7 % (32.0-36.0); MONO % 6.2 % (0.0-8.0); MONOCYTE # 0.4 TH/MM3 (0-0.9); NEUT % 56.6 % (16.0-70.0); PLATELET COUNT 214 TH/MM3 (150-450); RED BLOOD COUNT 5.59 MIL/MM3 (4.00-5.30); RED CELL DISTRIBUTION WIDTH 14.2 % (11.6-17.2); WHITE BLOOD COUNT 6.8 TH/MM3 (4.0-11.0)
[2018-03-22 18:37] LABS: ALBUMIN 3.8 GM/DL (3.4-5.0); ALT (GPT) 39 U/L (10-53); AST (GOT) 20 U/L (15-37); BICARBONATE 22.4 MEQ/L (21.0-32.0); BLOOD UREA NITROGEN 10 MG/DL (7-18); CALCIUM 9.4 MG/DL (8.5-10.1); CHLORIDE 108 MEQ/L (98-107); CREATININE 0.91 MG/DL (0.50-1.00); GLOMERULAR FILTRATION RATE 86 ML/MIN (>89); GLUCOSE,RANDOM 171 MG/DL (74-106); SODIUM (NA) 141 MEQ/L (136-145)
[2018-03-22 18:48] LABS: ALKALINE PHOSPHATASE 114 U/L (45-117); TOTAL BILIRUBIN ADULT 0.1 MG/DL (0.2-1.0); TOTAL PROTEIN 7.5 GM/DL (6.4-8.2)
[2018-03-22 19:32] VITALS: BP 152/86; PULSE 85; TEMP 98.3; O2SAT 100
[2018-03-22] MEDS ORDERED: METF500T PO (19:48)
[2018-03-22] MEDS ORDERED: LORazepam 2 MG/ML VIAL IM ONE (21:30)
[2018-03-22] MEDS ORDERED: HALOPERIDOL LACTATE 5 MG/ML AMP IM ONE (21:30)
[2018-03-23 00:52] VITALS: BP 137/83; PULSE 63; RESP 18; TEMP 98.3; O2SAT 99
[2018-03-23 10:38] VITALS: BP 137/73; PULSE 102; RESP 20; O2SAT 98
--- NOTE | 2018-03-23 10:49 | PD ---
History of Present Illness Chief Complaint: Psychiatric Symptoms Time Seen by Provider: 10:36 Travel History International Travel<30 Days: No Contact w/Intl Traveler<30days: No Known affected area: No Legal Status Legal Status: Ex Parte History of Present Illness: This is a 33-year-old single, -Macedonian female who presents under an ex- parte to this facility for being psychotic and delusional. Patient is well- known to this facility and has multiple inpatient admissions previously. Reviewed electronic medical record, labs, discuss case with staff. Patient was evaluated in her room and J pod. She was found sound asleep on the bed. Awoke to verbal stimuli was alert and oriented to place and self at least. Her speech is clear, organized, but somewhat illogical. She seems to be experiencing some paranoid delusions stating that "people are putting stuff in my joint" when asked to elaborate she stated that "I smoked a joint for my birthday, it was about an ounce, God told me that there is about an ounce of everything and it". Again when asked to elaborate she stated she believed there was "crack, crank, and all kinds of stuff in the joint". At this time patient does not seem internally stimulated however, I question whether some thought blocking was present as I had to repeat myself several times when answering her questions. She denies being suicidal, homicidal, experiencing auditory or visual hallucinations. However, in reviewing her electronic medical record and discussed the case with staff patient became aggressive, agitated, and more disorganized last night on 2 occasions. Her ex-partner today reports that she has missed 2 of her long-acting Haldol injections. PFSH Past Medical History Hx Anticoagulant Therapy: No Arthritis: No Asthma: No Autoimmune Disease: No Blood Disorders: No Bipolar Disorder: Yes Anxiety: Yes Depression: Yes Heart Rhythm Problems: No Cancer: No Cardiovascular Problems: Yes (heart murmur) High Cholesterol: No Chemotherapy: No Chest Pain: No Congestive Heart Failure: No COPD: No Cerebrovascular Accident: No Diabetes: Yes Diminished Hearing: No Deep Vein Thrombosis: Yes Endocrine: Yes Gastrointestinal Disorders: No GERD: No Genitourinary: No Headaches: No Hepatitis: No Hiatal Hernia: No Hypertension: Yes Immune Disorder: No Implanted Vascular Access Dvce: No Musculoskeletal: No Neurologic: No Psychiatric: Yes Reproductive: No Respiratory: No Immunizations Current: Yes Migraines: Yes Myocardial Infarction: No Radiation Therapy: No Renal Failure: No Schizophrenia: Yes (schizoaffective) Seizures: No Sleep Apnea: No Ulcer: No ?: Unknown Menopausal: No : 1 Para: 1 Miscarriage: 0 : 0 Past Surgical History Abdominal Surgery: No AICD: No Arteriovenous Shunt: No Cardiac Surgery: No Section: Yes (2009) Cholecystectomy: No Ear Surgery: No Endocrine Surgery: Yes Eye Surgery: No Genitourinary Surgery: No Gynecologic Surgery: Yes () Hysterectomy: No Insulin Pump: No Joint Replacement: No Oral Surgery: No Pacemaker: No Thoracic Surgery: No Other Surgery: Yes (left salpingo oopherectomy with lysis of adhesions) Psychiatric History Psychiatric History Well-known to this facility with multiple inpatient admissions. Per family, patient has missed 2 of her outpatient long-acting injections. Hx Psychiatric Treatment: pt has been seen by [facility] outpt History of Inpatient Treatment: Yes Guns or firearms in home: No Social History Polysubstance abuse. Hx Alcohol Use: Yes (OCCASIONAL) Hx Tobacco Use: Yes (1PPD) Hx Substance Use: No Substance Use Type: Marijuana, Synth Opiates-Pain Pills Other Substances Used: TRIED COCAINE ONCE AND USING MARIJUANA IN PAST Hx of Substance Use Treatment: No Allergies-Medications (Allergen,Severity, Reaction): Coded Allergies: penicillin G (Unverified Allergy, Intermediate, hives, 07/07/17) Reported Meds & Prescriptions Reported Meds & Active Scripts Active Ventolin Hfa 18 GM Inh (Albuterol Sulfate) 90 Mcg/Act Aer 2 Puff INH Q4-6H PRN Trazodone (Trazodone HCl) 50 Mg Tab 100 Mg PO HS 0 Days Order is to update med rec only. Pt has supply at home. Quetiapine (Quetiapine Fumarate) 25 Mg Tab 25 Mg PO TID 15 Days Reported Metformin (Metformin HCl) 500 Mg Tab 500 Mg PO BIDPC Lisinopril 5 Mg Tab 5 Mg PO DAILY Haldol Decanoate Inj (Haloperidol Decanoate) 100 Mg/Ml Inj 200 Mg IM Q28D Mental Status Examination Appearance: Disheveled, Malodorous Consciousness: Alert Orientation: Person, Place (At least) Motor Activity: Other (Lying on the bed) Speech: Unremarkable Language: Adequate Fund of Knowledge: Inadequate Attention and Concentration: Easily Distracted Memory: Impaired Mood: Anxious Affect: Anxious Thought Process & Associations: Disorganized Thought Content: Delusional Hallucination Type: None Delusion Type: Paranoid Suicidal Ideation: No Suicidal Plan: No Suicidal Intention: No Homicidal Ideation: No Homicidal Plan: No Homicidal Intention: No Insight: Poor Judgment: Poor MDM Medical Decision Making Medical Record Reviewed: Yes Assessment/Plan This is a 33-year-old single, -Macedonian female who presents under an ex parte for increasing delusional behavior related to noncompliance with her psychotropics as well as polysubstance abuse. Upon examination this morning patient is awake, alert, and oriented to self and place at least. Her speech is clear, organized, but at times illogical. There is no apparent internal stimulation however, I question whether or thought blocking were present as on multiple occasions I had to repeat answers to her questions several times. Her mood is anxious as is her affect. She is focused on discharge. She denies being suicidal, homicidal, experiencing auditory or visual hallucinations. She does exhibit paranoia stating that she believes people are putting "stuff in my joint". When asked to elaborate she explains that she believes people are releasing her marijuana with other drugs. She believes that God advised her that this is happening. Patient will be admitted to the 2700 unit for further evaluation, treatment as deemed necessary, and psychiatric stabilization. Orders Orders Complete Blood Count With Diff (03/22/18 17:51) Comprehensive Metabolic Panel (03/22/18 17:51) Thyroid Stimulating Hormone (03/22/18 17:51) Ed Urine Pregnancytest Poc (03/22/18 17:51) Psych Screen (03/22/18 17:51) Drug Screen, Random Urine (03/22/18 17:51) Alcohol (Ethanol) (03/22/18 17:51) Lorazepam Inj (Ativan Inj) (03/22/18 21:30) Haloperidol Inj (Haldol Inj) (03/22/18 21:30) Restraints Violent (03/22/18 21:27) Diet Diabetic (03/23/18 Breakfast) Results Vital Signs Date Time Temp Pulse Resp B/P (MAP) Pulse Ox O2 Delivery O2 Flow Rate FiO2 03/23/18 00:52 98.3 63 18 137/83 (101) 99 03/22/18 19:32 98.3 85 152/86 (108) 100 03/22/18 17:45 98.9 97 20 131/99 (110) Laboratory Tests Test 03/22/18 17:50 03/22/18 17:55 Urine Opiates Screen NEG Urine Barbiturates Screen NEG Urine Amphetamines Screen NEG Urine Benzodiazepines Screen NEG Urine Cocaine Screen NEG Urine Cannabinoids Screen POS White Blood Count 6.8 Red Blood Count 5.59 Hemoglobin 16.0 Hematocrit 47.4 Mean Corpuscular Volume 84.7 Mean Corpuscular Hemoglobin 28.6 Mean Corpuscular Hemoglobin Concent 33.7 Red Cell Distribution Width 14.2 Platelet Count 214 Mean Platelet Volume 9.0 Neutrophils (%) (Auto) 56.6 Lymphocytes (%) (Auto) 32.6 Monocytes (%) (Auto) 6.2 Eosinophils (%) (Auto) 3.5 Basophils (%) (Auto) 1.1 Neutrophils # (Auto) 3.9 Lymphocytes # (Auto) 2.2 Monocytes # (Auto) 0.4 Eosinophils # (Auto) 0.2 Basophils # (Auto) 0.1 CBC Comment DIFF FINAL Differential Comment Blood Urea Nitrogen 10 Creatinine 0.91 Random Glucose 171 Total Protein 7.5 Albumin 3.8 Calcium Level 9.4 Alkaline Phosphatase 114 Aspartate Amino Transf (AST/SGOT) 20 Alanine Aminotransferase (ALT/SGPT) 39 Total Bilirubin 0.1 Sodium Level 141 Potassium Level 4.3 Chloride Level 108 Carbon Dioxide Level 22.4 Anion Gap 11 Estimat Glomerular Filtration Rate 86 Thyroid Stimulating Hormone 3rd Gen 0.820 Ethyl Alcohol Level LESS THAN 3 Diagnosis Primary Impression: Schizophrenia Additional Impression: Polysubstance abuse Admitting Information Admitting Physician Requests: Admit Condition: Stable Problem Qualifiers Stacy Rocha March 23, 2018 10:49
[2018-03-23] MEDS ORDERED: ALUMINUM/MAGNESIUM/SIMETH 30 ML CUP PO PRN (11:30)
[2018-03-23] MEDS ORDERED: MAGNESIUM HYDROXIDE SUSP 30 ML CUP PO PRN (11:30)
[2018-03-23] MEDS ORDERED: ACETAMINOPHEN 325 MG TAB PO PRN (11:30)
[2018-03-23 17:40] VITALS: BP 161/108; PULSE 81; TEMP 98.1
[2018-03-24 05:52] VITALS: BP 140/90; PULSE 77; RESP 18; TEMP 97.5; O2SAT 96
[2018-03-24 10:07] LABS: BICARBONATE 26.1 MEQ/L (21.0-32.0); BLOOD UREA NITROGEN 10 MG/DL (7-18); CALCIUM 8.5 MG/DL (8.5-10.1); CHLORIDE 106 MEQ/L (98-107); CHOLESTEROL 118 MG/DL (120-200); CHOLESTEROL/ HDL RATIO 2.62 RATIO; CREATININE 1.05 MG/DL (0.50-1.00); GLOMERULAR FILTRATION RATE 73 ML/MIN (>89); GLUCOSE,RANDOM 201 MG/DL (74-106); HDL CHOLESTEROL 44.9 MG/DL (40.0-60.0); LDL CHOLESTEROL 33 MG/DL (0-99); SODIUM (NA) 141 MEQ/L (136-145); TRIGLYCERIDES 200 MG/DL (42-150)
[2018-03-24 11:34] LABS: HEMOGLOBIN A1C 6.8 % (4.3-6.0)
--- NOTE | 2018-03-24 13:50 | HHI.HP ---
Provisional Diagnosis Admission Date March 23, 2018 at 11:23 [place] I. 1. Schizoaffective disorder, bipolar type, acute exacerbation [place] II. Deferred Certification of Person's Competence To Provide Express and Informed Consent I have personally examined Nuha Doherty , a person being served at [facility] on, March 24, 2018 13:49. Express and informed consent means consent voluntarily given in writing, by a competent person, after sufficient explanation and disclosure of the subject matter involved to enable the person to make a knowing and willful decision without any element of force, fraud, deceit, duress, or other form of constraint or coercion. This person is 18 years of age or older, is not now known to be incompetent to consent to treatment with a guardian advocate, and does not have a health care surrogate or proxy currently making medical treatment decisions. I have found this person to be one of the following: [] Competent to provide express and informed consent, as defined above, for voluntary admission to this facility and is competent to provide express and informed consent for treatment. He/she has the consistent capacity to make well reasoned, willful, and knowing decisions concerning his or her medical or mental health treatment. The person fully and consistently understands the purpose of the admission for examination/placement and is fully capable of personally exercising all rights assured [place] [] Incompetent to provide express and informed consent to voluntary admission, and this is incompetent to provide express and informed consent to treatment. The person must be transferred to involuntary status and a petition for a guardian advocate filed with the Circuit Court. [x] Refusing to provide express and informed consent to voluntary admission but is competent to provide express and informed consent for treatment. The person must be discharged or transferred to involuntary status. Form shall be completed within 24 hours of a person's arrival at the receiving facility and filed in the clinical record of each person: 1. Admitted on a voluntary basis 2. Permitted to provide express and informed consent to his/her own treatment 3. Allowed to transfer from involuntary to voluntary status 4. Prior to permitting a person to consent to his or her own treatment after having been previously found incompetent to consent to treatment. History of Present Illness Capacity: Has Capacity (to consent for meds) Psych Chief Complaint: Psychosis HPI Ms. Doherty is a 33-year-old female with a history of schizoaffective disorder who presents under an ex parte order initiated by her mother alleging that the patient has been nonadherent with her medication and has become delusional. The affidavit is quite extensive and also seems to allege that a relative has given her some sort of illicit drugs. Patient's urine toxicology is positive for cannabinoids only. Reviewing the electronic medical record, I note that the patient was admitted most recently under my care in November 2016. Patient seen and examined with nurse. Chart reviewed. Case discussed with nursing staff. On my examination today, the patient is fixated on receiving methadone. She says that she has been abusing drugs on an outpatient basis. Patient's report of substance use seems to have a delusional quality however because the patient says at one point "my mom gave me a Slurpee with crystal meth in it." She is quite irritable and paranoid. Thought process is tangential, at times somewhat disorganized. Affect is dysphoric. She admits that sleep has been poor for the last 7 days at least. She reports that she has been nonadherent with her psychotropic medications. She tells me "I think you need to up my Haldol [Dec] to 400 mg." She denies any suicidal or homicidal ideation and saying "how could I have because I am a Rastafarian." Patient is unable to tolerate extended interview. I am unable to obtain any past psychiatric, family, chemical dependency or social history for the same reason. No acute physical complaints. I did endeavor to reach out to patient's mother at the number listed in the ex parte order and left a generic voicemail requesting a call back. Review of Systems ROS Limitations: Psychotic, Poor Historian Except as stated in HPI: all other systems reviewed are Neg Past Family Social History Coded Allergies: penicillin G (Unverified Allergy, Intermediate, hives, 07/07/17) Past Medical History See electronic medical record Active Scripts Albuterol 18 GM Inh (Ventolin Hfa 18 GM Inh) 90 Mcg/Act Aer, 2 PUFF INH Q4-6H Y for SHORTNESS OF BREATH, #1 INHALER 0 Refills Prov:Chris Lewis MD 07/07/17 Trazodone (Trazodone) 50 Mg Tab, 100 MG PO HS for Mental Health for 0 Days, TAB 0 Refills Order is to update med rec only. Pt has supply at home. Prov:Adria Gu MD 11/17/16 Quetiapine (Quetiapine) 25 Mg Tab, 25 MG PO TID for Mental Health for 15 Days, TAB 1 Refill Prov:Adria Gu MD 11/17/16 Reported Medications Metformin (Metformin) 500 Mg Tab, 500 MG PO BIDPC for Blood Sugar Management, # 60 TAB 0 Refills 03/22/18 Lisinopril (Lisinopril) 5 Mg Tab, 5 MG PO DAILY for Blood Pressure Management, # 30 TAB 0 Refills 11/14/16 Haloperidol Decanoate Inj (Haldol Decanoate Inj) 100 Mg/Ml Inj, 200 MG IM Q28D for Schizophrenia, #1 VIAL 0 Refills 11/14/16 Discontinued Reported Medications Glipizide (Glucotrol) 5 Mg Tab, 5 MG PO DAILY for Blood Sugar Management, #30 TAB 0 Refills Take 30 minutes before a meal 11/14/16 Current Medications Medications (Trade) Dose Ordered Sig/Darrion Route Start Time Stop Time Status Last Admin (Tylenol) 650 mg Q4H PRN PO 03/23/18 11:30 (Milk Of Magnesia Liq) 30 ml DAILY PRN PO 03/23/18 11:30 (Mag-Al Plus Susp Liq) 30 ml Q6H PRN PO 03/23/18 11:30 Patient's Strengths (min. 2) In a monitored setting. Verbally fluent. Physical Exam Physical exam completed by ED provider. On my examination today, the patient appears to be in no acute physical distress. Patient has an extremely distractible coarse hand tremor that only appears when she talks about her reported substance use. I believe she is trying to demonstrate withdrawal signs , although she has no objective signs of withdrawal otherwise. No other motor abnormalities noted. Labs and vitals reviewed: Vital Signs Vital Signs Date Time Temp Pulse Resp B/P (MAP) Pulse Ox O2 Delivery O2 Flow Rate FiO2 03/24/18 05:52 97.5 77 18 140/90 (107) 96 03/23/18 10:38 Room Air Lab Results Laboratory Tests Test 03/22/18 17:50 03/22/18 17:55 03/24/18 09:01 Urine Opiates Screen NEG Urine Barbiturates Screen NEG Urine Amphetamines Screen NEG Urine Benzodiazepines Screen NEG Urine Cocaine Screen NEG Urine Cannabinoids Screen POS White Blood Count 6.8 TH/MM3 Red Blood Count 5.59 MIL/MM3 Hemoglobin 16.0 GM/DL Hematocrit 47.4 % Mean Corpuscular Volume 84.7 FL Mean Corpuscular Hemoglobin 28.6 PG Mean Corpuscular Hemoglobin Concent 33.7 % Red Cell Distribution Width 14.2 % Platelet Count 214 TH/MM3 Mean Platelet Volume 9.0 FL Neutrophils (%) (Auto) 56.6 % Lymphocytes (%) (Auto) 32.6 % Monocytes (%) (Auto) 6.2 % Eosinophils (%) (Auto) 3.5 % Basophils (%) (Auto) 1.1 % Neutrophils # (Auto) 3.9 TH/MM3 Lymphocytes # (Auto) 2.2 TH/MM3 Monocytes # (Auto) 0.4 TH/MM3 Eosinophils # (Auto) 0.2 TH/MM3 Basophils # (Auto) 0.1 TH/MM3 CBC Comment DIFF FINAL Differential Comment Blood Urea Nitrogen 10 MG/DL 10 MG/DL Creatinine 0.91 MG/DL 1.05 MG/DL Random Glucose 171 MG/DL 201 MG/DL Total Protein 7.5 GM/DL Albumin 3.8 GM/DL Calcium Level 9.4 MG/DL 8.5 MG/DL Alkaline Phosphatase 114 U/L Aspartate Amino Transf (AST/SGOT) 20 U/L Alanine Aminotransferase (ALT/SGPT) 39 U/L Total Bilirubin 0.1 MG/DL Sodium Level 141 MEQ/L 141 MEQ/L Potassium Level 4.3 MEQ/L 3.8 MEQ/L Chloride Level 108 MEQ/L 106 MEQ/L Carbon Dioxide Level 22.4 MEQ/L 26.1 MEQ/L Thyroid Stimulating Hormone 3rd Gen 0.820 uIU/ML Ethyl Alcohol Level LESS THAN 3 MG/DL Anion Gap 9 MEQ/L Estimat Glomerular Filtration Rate 73 ML/MIN Hemoglobin A1c 6.8 % Triglycerides Level 200 MG/DL Cholesterol Level 118 MG/DL LDL Cholesterol 33 MG/DL HDL Cholesterol 44.9 MG/DL Cholesterol/HDL Ratio 2.62 RATIO ED point of care test negative. EKG normal sinus rhythm with a QTC of 405 ms. Mental Status Examination Appearance: Disheveled Consciousness: Alert Orientation: Person, Place (At least) Motor Activity: Normal gait Speech: Rapid Language: Other (Rambling) Fund of Knowledge: Inadequate Attention and Concentration: Easily Distracted Memory: Impaired (Psychosis interferes) Mood: Irritable Affect: Irritable, Other (Dysphoric) Thought Process & Associations: Other (Tangential, at times frankly disorganized) Thought Content: Delusional Hallucination Type: Other (Appears somewhat internally preoccupied) Delusion Type: Paranoid Suicidal Ideation: No (Unreliable to contract for safety) Suicidal Plan: No Suicidal Intention: No Homicidal Ideation: No Homicidal Plan: No Homicidal Intention: No Insight: Poor Judgment: Poor Assessment & Plan Problem List: (1) Schizoaffective disorder ICD Codes: F25.9 - Schizoaffective disorder Status: Acute Assessment & Plan 33-year-old female with psychiatric history as detailed above who presents under ex parte order initiated by mother. On my examination today, the patient is floridly psychotic. She admits to medication nonadherence. She has previously been stabilized on Haldol and lithium, and I will resume these agents now. Patient requires psychiatric hospitalization for safety, observation and stabilization. Admit inpatient. Involuntary status. I have completed first opinion. Consult for second opinion. Patient retains capacity to consent for medication at this time. For psychosis, start Haldol 10 mg twice daily. Likely we will plan to transition back to Haldol Decanoate once we assured her ongoing efficacy of this agent. For mood stabilization start lithium 450 mg twice daily with plans to check a level after the appropriate interval. Continue patient's lisinopril and metformin. Accu-Cheks and sliding scale. Encourage fluids and check a BMP in the morning to follow-up renal function. Vitals every shift. Counselor to see. Collateral information. Disposition planning. Estimated length of stay: 7-9 days. Discharge Planning Pending psychiatric stabilization Request HC Surrog/Guard Advoc?: No (Not at this time) Problem Qualifiers (1) Schizoaffective disorder: Qualified Codes: F25.0 - Schizoaffective disorder, bipolar type Adria Gu MD March 24, 2018 13:50
[2018-03-24] MEDS ORDERED: GLUCAGON 1 MG/ML VIAL OTHER PRN (15:15)
[2018-03-24] MEDS ORDERED: ALBUTEROL SULFATE 90 MCG/ACT HFA 8 GM INHALER INH PRN (15:15)
[2018-03-24] MEDS ORDERED: DEXTROSE 50% IN WATER 50 ML VIAL(D50) IV PUSH PRN (15:15)
[2018-03-24] MEDS ORDERED: BENZTROPINE MESYLATE 2 MG/2 ML VIAL IM PRN (15:15)
[2018-03-24] MEDS ORDERED: BENZTROPINE MESYLATE 1 MG TAB PO PRN (15:15)
[2018-03-24] MEDS ORDERED: LORazepam 2 MG/ML VIAL IM PRN (15:15)
[2018-03-24] MEDS: NICOTINE 21 MG/24 HR PATCH T-DERMAL SCH (16:00)
[2018-03-24] MEDS: LORazepam 2 MG TAB PO PRN (16:31)
[2018-03-24] MEDS: INSULIN ASPART SUPPLEMENTAL SCALE SQ SCH ×2 (17:00→21:00)
[2018-03-24 17:42] VITALS: BP 134/94; PULSE 88; RESP 18; TEMP 98.6; O2SAT 98
[2018-03-24] MEDS: metFORMIN HCL 500 MG TAB PO SCH (18:20)
[2018-03-24] MEDS: LITHIUM CARBONATE 450 MG CONTROLLED RELEASE TAB PO SCH (18:20)
--- NOTE | 2018-03-24 20:45 | EKG ---
Date Performed: 03/24/2018 Time Performed: 08:23:14 PTAGE: 33 years EKG: Sinus rhythm NORMAL ECG PREVIOUS TRACING : 10/12/2015 13.21 Since the previous tracing, no significant change noted DOCTOR: Dorian Gerber Interpretating Date/Time 03/24/2018 20:43:33
[2018-03-24] MEDS: HALOPERIDOL 10 MG TAB PO SCH (21:17)
[2018-03-24] MEDS: ZOLPIDEM TARTRATE 5 MG TAB PO PRN (23:53)
[2018-03-25 06:37] VITALS: BP 140/80; PULSE 77; RESP 20; TEMP 97.6; O2SAT 97
[2018-03-25] MEDS: INSULIN ASPART SUPPLEMENTAL SCALE SQ SCH ×4 (07:53→21:00)
[2018-03-25] MEDS: HALOPERIDOL 10 MG TAB PO SCH ×2 (07:54→21:00)
[2018-03-25] MEDS: LITHIUM CARBONATE 450 MG CONTROLLED RELEASE TAB PO SCH ×2 (07:55→17:44)
[2018-03-25] MEDS: metFORMIN HCL 500 MG TAB PO SCH ×2 (07:55→17:43)
[2018-03-25] MEDS: LISINOPRIL 5 MG TAB PO SCH (07:55)
[2018-03-25] MEDS: REMOVE OLD PATCH T-DERMAL SCH (09:00)
[2018-03-25] MEDS: NICOTINE 21 MG/24 HR PATCH T-DERMAL SCH (09:00)
[2018-03-25] MEDS ORDERED: ALUMINUM/MAGNESIUM/SIMETH 30 ML CUP PO PRN (11:00)
[2018-03-25] MEDS ORDERED: MAGNESIUM HYDROXIDE SUSP 30 ML CUP PO PRN (11:00)
[2018-03-25] MEDS ORDERED: ACETAMINOPHEN 325 MG TAB PO PRN (11:00)
--- NOTE | 2018-03-25 11:00 | HHI.PYPN ---
Subjective Chief Complaint: Psychosis Remarks Patient initially admitted by Dr. Adria Gu's H&P reviewed and agreed with. I have finished the initial psychiatric template admission orders, and the med reconciliation review. Dr. Gu has initiated the involuntary petition under the Parker act. Patient seen by me today with floor staff, chart reviewed, patient discussed with nurse. Patient continues disorganized paranoid and delusional stating that her mother gave her marijuana stimulation of mollies methamphetamine and cocaine. She is also requesting methadone to counteract it. Patient remains delusional if she is compliant with medications. She is taking her lithium. We will check a lithium blood level on 03/28 for now continue treatment change I do agree with Dr. Gu I will cosign second opinion petition supporting Parker act Review of Systems Except as stated in HPI: all other systems reviewed are Neg Mental Status Examination Appearance: Disheveled Consciousness: Alert Orientation: Person, Place (At least) Motor Activity: Normal gait Speech: Rapid Language: Other (Rambling) Fund of Knowledge: Inadequate Attention and Concentration: Easily Distracted Memory: Impaired (Psychosis interferes) Mood: Irritable Affect: Irritable, Other (Dysphoric) Thought Process & Associations: Other (Tangential, at times frankly disorganized) Thought Content: Delusional Hallucination Type: Other (Appears somewhat internally preoccupied) Delusion Type: Paranoid Suicidal Ideation: No (Unreliable to contract for safety) Suicidal Plan: No Suicidal Intention: No Homicidal Ideation: No Homicidal Plan: No Homicidal Intention: No Insight: Poor Judgment: Poor Results Vitals/IOs Vital Signs Date Time Temp Pulse Resp B/P (MAP) Pulse Ox O2 Delivery O2 Flow Rate FiO2 03/25/18 06:37 97.6 77 20 140/80 (100) 97 03/23/18 10:38 Room Air Assessment & Plan Problem List: (1) Schizoaffective disorder ICD Codes: F25.9 - Schizoaffective disorder Status: Acute Assessment & Plan Estimated LOS: days patient continues psychotic paranoid and delusional. She is compliant with medication. Patient scheduled for a lithium blood level on . For now continue treatment Dr. Gu is done first opinion petition supporting Parker act and I agree with him I have cosign second opinion petition supporting [place] act Justification for Cont. Inpt. At this time patient would decompensate a place to the lower level of care Discharge Planning To be determined Request HC Surrog/Guard Advoc?: No (Not at this time) Problem Qualifiers (1) Schizoaffective disorder: Qualified Codes: F25.0 - Schizoaffective disorder, bipolar type Aj De Luna MD March 25, 2018 11:00
[2018-03-25 12:02] LABS: BICARBONATE 27.3 MEQ/L (21.0-32.0); CALCIUM 9.2 MG/DL (8.5-10.1); CREATININE 0.92 MG/DL (0.50-1.00)
--- NOTE | 2018-03-25 15:33 | PD.TTN ---
Patient Problems 1. Discharge planning 2. Medication compliance 3. Knowledge deficit 4. Lack of coping skills Progress Toward Goals Provider Present: Dr. Zach De Luna Provider Input: 03/25/18 New pt Psychiatric Counselors Present: Ayesha Diaz LCSW, Luci Emmanuel, [facility], Valery Walter, [facility] Group Spec/RT/OT/BUTLER Present: LUKE Carcamo, Ismael Salguero, OT Group Spec/RT/OT/BUTLER Input: 03/25/18 New pt Occupational Therapist Input: 03/25/18 Ariane Munoz pt/Alicia March 25, 2018 15:33
[2018-03-25 15:50] VITALS: BP 129/67; PULSE 72; RESP 18; TEMP 98.1; O2SAT 97
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
[2018-03-25] MEDS ORDERED: diphenhydrAMINE HCL 50 MG CAP PO PRN (21:00)
[2018-03-25] MEDS: LORazepam 2 MG TAB PO PRN (22:00)
[2018-03-25] MEDS: ZOLPIDEM TARTRATE 5 MG TAB PO PRN (22:34)
[2018-03-26 06:38] VITALS: BP 135/62; PULSE 84; RESP 16; TEMP 97.7; O2SAT 99
[2018-03-26] MEDS: INSULIN ASPART SUPPLEMENTAL SCALE SQ SCH ×4 (08:00→20:41)
[2018-03-26] MEDS: HALOPERIDOL 10 MG TAB PO SCH (08:19)
[2018-03-26] MEDS: metFORMIN HCL 500 MG TAB PO SCH ×2 (08:27→17:22)
[2018-03-26] MEDS: LITHIUM CARBONATE 450 MG CONTROLLED RELEASE TAB PO SCH ×2 (08:28→17:22)
[2018-03-26] MEDS: NICOTINE 21 MG/24 HR PATCH T-DERMAL SCH (09:00)
[2018-03-26] MEDS: hydrOXYzine HCL 50 MG TAB PO PRN ×2 (09:00→16:09)
[2018-03-26] MEDS: REMOVE OLD PATCH T-DERMAL SCH (09:00)
--- NOTE | 2018-03-26 10:23 | HHI.PYPN ---
Subjective Chief Complaint: Psychosis Remarks Patient is seen in the odell with nurse Bianca, chart reviewed, patient compliant showing mixed compliance with medication refusing her lithium. Patient feels she is ready to go she denies need for medication especially the lithium. It was noted that while talking the patient turn to her side and had a conversation with herself. She says she was talking to the holy spirit who told she did not need to take her medicine. She showed continued signs of paranoia and intrusiveness. She does deny suicidality at the present time for now we will increase her oral Haldol to 15 mg twice daily, we will offer the patient Haldol decanoate 100 mg IM, and also add Cogentin 1 mg twice daily. RN Bianca talked the patient's mother who continues quite concerned about her daughter 's mental health. The question she not be discharged to be placed on a trial of the long-acting medication. Review of Systems Except as stated in HPI: all other systems reviewed are Neg Mental Status Examination Appearance: Disheveled Consciousness: Alert Orientation: Person, Place (At least) Motor Activity: Normal gait Speech: Rapid Language: Other (Rambling) Fund of Knowledge: Inadequate Attention and Concentration: Easily Distracted Memory: Impaired (Psychosis interferes) Mood: Irritable Affect: Irritable, Other (Dysphoric) Thought Process & Associations: Other (Tangential, at times frankly disorganized) Thought Content: Delusional Hallucination Type: Other (Appears somewhat internally preoccupied) Delusion Type: Paranoid Suicidal Ideation: No (Unreliable to contract for safety) Suicidal Plan: No Suicidal Intention: No Homicidal Ideation: No Homicidal Plan: No Homicidal Intention: No Insight: Poor Judgment: Poor Results Labs Test 03/25/18 11:12 Blood Urea Nitrogen 13 MG/DL Creatinine 0.92 MG/DL Random Glucose 146 MG/DL Calcium Level 9.2 MG/DL Sodium Level 142 MEQ/L Potassium Level 4.1 MEQ/L Chloride Level 107 MEQ/L Carbon Dioxide Level 27.3 MEQ/L Anion Gap 8 MEQ/L Estimat Glomerular Filtration Rate 85 ML/MIN Vitals/IOs Vital Signs Date Time Temp Pulse Resp B/P (MAP) Pulse Ox O2 Delivery O2 Flow Rate FiO2 03/26/18 06:38 97.7 84 16 135/62 (86) 99 03/23/18 10:38 Room Air Assessment & Plan Problem List: (1) Schizoaffective disorder ICD Codes: F25.9 - Schizoaffective disorder Status: Acute Assessment & Plan Estimated LOS: days patient is quite paranoid and delusional with auditory hallucinations of the holy spirit. Please see medication adjustments above Justification for Cont. Inpt. At this time patient would decompensate and placed on a lower level of care Discharge Planning To be determined Request HC Surrog/Guard Advoc?: No (Not at this time) Problem Qualifiers (1) Schizoaffective disorder: Qualified Codes: F25.0 - Schizoaffective disorder, bipolar type Aj De Luna MD March 26, 2018 10:23
[2018-03-26] MEDS ORDERED: HALOPERIDOL DECANOATE 50 MG/ML VIAL IM SCH (11:00)
--- NOTE | 2018-03-26 12:35 | HHI.PR ---
Subjective Remarks Patient resting in bed awakens to voice Offers no medical complaints at this time. Objective Vitals Vital Signs Date Time Temp Pulse Resp B/P (MAP) Pulse Ox O2 Delivery O2 Flow Rate FiO2 03/26/18 06:38 97.7 84 16 135/62 (86) 99 03/25/18 15:50 98.1 72 18 129/67 (87) 97 Result Diagram: 03/22/18 1755 03/25/18 1112 Other Results Laboratory Tests Test 03/24/18 09:01 03/25/18 11:12 Blood Urea Nitrogen 10 MG/DL 13 MG/DL Creatinine 1.05 MG/DL 0.92 MG/DL Random Glucose 201 MG/DL 146 MG/DL Calcium Level 8.5 MG/DL 9.2 MG/DL Sodium Level 141 MEQ/L 142 MEQ/L Potassium Level 3.8 MEQ/L 4.1 MEQ/L Chloride Level 106 MEQ/L 107 MEQ/L Carbon Dioxide Level 26.1 MEQ/L 27.3 MEQ/L Anion Gap 9 MEQ/L 8 MEQ/L Estimat Glomerular Filtration Rate 73 ML/MIN 85 ML/MIN Hemoglobin A1c 6.8 % Triglycerides Level 200 MG/DL Cholesterol Level 118 MG/DL LDL Cholesterol 33 MG/DL HDL Cholesterol 44.9 MG/DL Cholesterol/HDL Ratio 2.62 RATIO Objective Remarks GENERAL: This is a morbidly obese -[place] female, well-developed patient, in no apparent distress. CARDIOVASCULAR: Regular rate and rhythm RESPIRATORY: Clear to auscultation. Breath sounds equal bilaterally. Difficult to auscultate due to body habitus GASTROINTESTINAL: Abdomen soft, non-tender, nondistended. Normal active bowel sounds MUSCULOSKELETAL: Extremities without clubbing, cyanosis, or edema. NEURO: Moves all 4 extremities spontaneously A/P Assessment and Plan 33-year-old female Hypertension. Recommend continuing lisinopril 5 mg daily Diabetes type 2. Good blood sugar readings hemoglobin A1c was 6.4. Continue on metformin 500 mg twice daily. Monitor blood sugars and adjust ADA diet Patient has been refusing lisinopril as well as metformin she believes that the Holy Spirit has cured her diabetes and high blood pressure. Discussed with patient encouraged her to take her medications as prescribed. Recommend continuing lisinopril 5 mg daily and metformin 500 mg twice a day. Tobacco abuse- patient counseled Substance abuse patient counseled. Supervising physician Erinn Haskins March 26, 2018 12:35
[2018-03-26 18:31] VITALS: BP 125/87; PULSE 81; RESP 18; TEMP 97.1; O2SAT 99
[2018-03-26] MEDS: HALOPERIDOL 5 MG TAB PO SCH (20:41)
[2018-03-26] MEDS: BENZTROPINE MESYLATE 1 MG TAB PO SCH (20:41)
[2018-03-27] MEDS: ZOLPIDEM TARTRATE 5 MG TAB PO PRN ×2 (00:55→20:46)
[2018-03-27] MEDS: LORazepam 2 MG TAB PO PRN ×2 (01:09→19:43)
[2018-03-27 06:01] VITALS: BP 120/55; PULSE 75; RESP 16; TEMP 98.6; O2SAT 100
[2018-03-27] MEDS: INSULIN ASPART SUPPLEMENTAL SCALE SQ SCH ×4 (07:12→20:50)
[2018-03-27] MEDS: metFORMIN HCL 500 MG TAB PO SCH ×2 (09:00→17:10)
[2018-03-27] MEDS: BENZTROPINE MESYLATE 1 MG TAB PO SCH ×2 (09:00→20:46)
[2018-03-27] MEDS: HALOPERIDOL 5 MG TAB PO SCH ×2 (09:00→20:46)
[2018-03-27] MEDS: REMOVE OLD PATCH T-DERMAL SCH (09:00)
[2018-03-27] MEDS: LITHIUM CARBONATE 450 MG CONTROLLED RELEASE TAB PO SCH ×2 (09:00→17:10)
[2018-03-27] MEDS: LISINOPRIL 5 MG TAB PO SCH (09:01)
--- NOTE | 2018-03-27 09:12 | HHI.PYPN ---
Subjective Chief Complaint: Psychosis Remarks Patient seen in her room with nurse Bianca, chart reviewed, patient compliant medication, patient discussed with nurse. Patient did receive her Haldol Decanoate injection yesterday patient seen in her room she is alert oriented continues quite delusional does believe that the "holy spirit" is talking directly to her. She still feels that she has been cured of her diabetes and her mental illness. She is refusing all her medical medications including her diabetic medications. Patient also feels that her Atarax is a substitute for methadone and should be given to her to treat her "opiate addiction". She was tried to negotiate the total daily dose of this insight into the reality of it. When asked where she would stay upon discharge she said she would go to her own apartment with her 7-year-old daughter. At this time patient is scheduled for [employer] tomorrow. Review of Systems Except as stated in HPI: all other systems reviewed are Neg Mental Status Examination Appearance: Disheveled (Improving) Consciousness: Alert Orientation: Person, Place, Situation Motor Activity: Normal gait Speech: Rapid Language: Other (Improving rambling) Fund of Knowledge: Inadequate Attention and Concentration: Easily Distracted Memory: Impaired (Psychosis interferes) Mood: Irritable Affect: Irritable, Other (Dysphoric) Thought Process & Associations: Other (Tangential, at times frankly disorganized) Thought Content: Delusional Hallucination Type: Other (Appears somewhat internally preoccupied) Delusion Type: Paranoid Suicidal Ideation: No (Unreliable to contract for safety) Suicidal Plan: No Suicidal Intention: No Homicidal Ideation: No Homicidal Plan: No Homicidal Intention: No Insight: Poor Judgment: Poor Results Vitals/IOs Vital Signs Date Time Temp Pulse Resp B/P (MAP) Pulse Ox O2 Delivery O2 Flow Rate FiO2 03/27/18 06:01 98.6 75 16 120/55 (76) 100 03/23/18 10:38 Room Air Assessment & Plan Problem List: (1) Schizoaffective disorder ICD Codes: F25.9 - Schizoaffective disorder Status: Acute Assessment & Plan Estimated LOS: days patient continues psychotic delusional and paranoid, but compliant medications. He does deny suicidality. Patient scheduled for [employer] tomorrow Justification for Cont. Inpt. At this time patient would decompensate a place to the lower level of care Discharge Planning Patient states would return to her own home with her young daughter Request HC Surrog/Guard Advoc?: No (Not at this time) Problem Qualifiers (1) Schizoaffective disorder: Qualified Codes: F25.0 - Schizoaffective disorder, bipolar type Aj De Luna MD March 27, 2018 09:12
[2018-03-27] MEDS: NICOTINE 21 MG/24 HR PATCH T-DERMAL SCH (11:06)
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
--- NOTE | 2018-03-27 16:22 | PD.TTN ---
Patient Problems 1. Discharge planning 2. Medication compliance 3. Knowledge deficit 4. Lack of coping skills Progress Toward Goals Provider Present: Dr. Zach De Luna Provider Input: 03/25/18 New pt 03/27/18 Patient is alert and oriented, has [employer] tomorrow. Patient continues to be delusional Nurse(s) Input: Patient is delusional, she isolates, childlike, is selective on medication Psychiatric Counselors Present: Ayesha Diaz [facility], Luci Emmanuel, [facility], Valery Walter, [facility] Psych Therapist Input: Patient is childlike, restricted, but is oriented and alert. Patient will attend [employer] [address] tomorrow. Patient received her Halodol injection yesterday. Group Spec/RT/OT/BUTLER Present: Dipika Mullins, LUKE, LUKE Carcamo, Ismael Salguero, OT Group Spec/RT/OT/BUTLER Input: 03/25/18 New pt 03/27/18 Patient isolates to self. Patient does attend groups Occupational Therapist Input: 03/25/18 New pt Luci Emmanuel [facility] March 27, 2018 16:21
[2018-03-27 16:49] VITALS: BP 114/77; PULSE 80; RESP 18; TEMP 98; O2SAT 98
[2018-03-27] MEDS: hydrOXYzine HCL 50 MG TAB PO PRN (16:59)
[2018-03-28] MEDS: hydrOXYzine HCL 50 MG TAB PO PRN ×2 (02:29→08:19)
[2018-03-28 06:08] VITALS: BP 130/82; PULSE 88; RESP 18; TEMP 97.5; O2SAT 99
[2018-03-28] MEDS: INSULIN ASPART SUPPLEMENTAL SCALE SQ SCH ×2 (08:00→11:11)
[2018-03-28] MEDS: metFORMIN HCL 500 MG TAB PO SCH ×2 (08:19→08:34)
[2018-03-28] MEDS: LISINOPRIL 5 MG TAB PO SCH ×2 (08:19→08:34)
[2018-03-28] MEDS: HALOPERIDOL 5 MG TAB PO SCH (08:19)
[2018-03-28] MEDS: BENZTROPINE MESYLATE 1 MG TAB PO SCH (08:24)
[2018-03-28] MEDS: LITHIUM CARBONATE 450 MG CONTROLLED RELEASE TAB PO SCH (08:26)
[2018-03-28] MEDS: NICOTINE 21 MG/24 HR PATCH T-DERMAL SCH (08:34)
[2018-03-28] MEDS: REMOVE OLD PATCH T-DERMAL SCH (08:38)
[2018-03-28] MEDS ORDERED: METF500 PO (08:55)
[2018-03-28] MEDS ORDERED: LISI-519 PO (08:55)
[2018-03-28] MEDS ORDERED: VENTAER INH (08:55)
[2018-03-28] MEDS ORDERED: HALO10TA PO (08:55)
[2018-03-28] MEDS ORDERED: HALO100P IM (08:55)
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
[2018-03-28] MEDS: LORazepam 2 MG TAB PO PRN (11:25)
== END 2018-03-28 11:50 | disposition home or self-care (01) | DRG 885 ==
LOC: NEPJ 17:23 → NEDA 03-23 11:23 → H270 03-23 13:09
PROVIDERS: ADMIT Psychiatry & Neurology Psychiatry; ATTEND Psychiatry & Neurology Psychiatry
DX: F25.0 Schizoaffective disorder, bipolar type (principal); E11.65 Type 2 diabetes mellitus with hyperglycemia; I10 Essential (primary) hypertension; F11.20 Opioid dependence, uncomplicated; Z91.14 Patient's other noncompliance with medication regimen; F17.210 Nicotine dependence, cigarettes, uncomplicated; Z79.84 Long term (current) use of oral hypoglycemic drugs
CPT/HCPCS: 80048; 80053; 80061; 80178; 80307; 82948; 83036; 84443; 84703; 85025; 93005; 96372; J1630; J1631; J2060

== ENCOUNTER 2018-04-02 19:01 | Inpatient (IN) | payer MEDICARE, OTHER ==
[~2018-04-02] VITALS: Ht 170.2 cm; Wt 127.6 kg
[~2018-04-02 19:01] MED LIST changes: -GLIP5 PO; +HALO10TA PO; +METF500 PO; -QUET1TAB7 PO
[2018-04-02 19:10] VITALS: BP 149/83; PULSE 85; RESP 18; TEMP 98.6
[2018-04-02] MEDS ORDERED: diphenhydrAMINE HCL 50 MG/ML VIAL IM ONE (19:45)
[2018-04-02] MEDS ORDERED: LORazepam 2 MG/ML VIAL IM ONE (19:45)
[2018-04-02] MEDS ORDERED: HALOPERIDOL LACTATE 5 MG/ML AMP IM ONE (19:45)
[2018-04-02 20:10] LABS: AUTOMATED NEUTROPHIL # 4.6 TH/MM3 (1.8-7.7); BASOPHIL # 0.1 TH/MM3 (0-0.2); EOSINOPHIL # 0.2 TH/MM3 (0-0.4); EOSINOPHIL % 2.2 % (0.0-4.0); HEMATOCRIT 43.4 % (35.0-46.0); HEMOGLOBIN 14.6 GM/DL (11.6-15.3); LYMPHOCYTE # 3.2 TH/MM3 (1.0-4.8); MEAN CELL VOLUME 81.9 FL (80.0-100.0); MEAN CORPUSCULAR HEMOGLOBIN 27.6 PG (27.0-34.0); MEAN CORPUSCULAR HGB CONC 33.7 % (32.0-36.0); MEAN PLATELET VOLUME 9.3 FL (7.0-11.0); MONO % 6.4 % (0.0-8.0); MONOCYTE # 0.6 TH/MM3 (0-0.9); NEUT % 53.4 % (16.0-70.0); PLATELET COUNT 243 TH/MM3 (150-450); RED CELL DISTRIBUTION WIDTH 13.5 % (11.6-17.2); WHITE BLOOD COUNT 8.6 TH/MM3 (4.0-11.0)
[2018-04-02 20:13] LABS: BILIRUBIN, URINE NEG (NEG); BLOOD, URINE TRACE (NEG); GLUCOSE,URINE NEG (NEG); KETONE, URINE NEG (NEG); NITRITE,URINE NEG (NEG); PH, URINE 5.5 (5.0-8.5); SQUAMOUS EPITHELIAL CELL URINE <1 /hpf (0-5); URINE COLOR COLORLESS (YELLW/STRAW); URINE LEUKOCYTE ESTERASE NEG (NEG)
--- NOTE | 2018-04-02 20:13 | PD ---
HPI Chief Complaint: Suicide Ideation/Attempt Time Seen by Provider: 19:16 Travel History International Travel<30 days: No Contact w/Intl Traveler<30days: No Traveled to known affect area: No History of Present Illness HPI Patient is a 33-year-old female presenting to [facility] under Parker act for psychiatric evaluation. Per the Parker act report patient's mother full concern that patient would act violently, patient allegedly made suicidal statements. Patient denies being suicidal. She denies any verbal or physical altercation with her mother. Patient reported that she was the "antichrist". Patient reported a history of schizoaffective disorder. Is uncertain whether she has been compliant with her medications. Patient has no physical complaints at this time. Patient states her mother has been Parker acting her since she was 17 years old. Symptom onset is unknown. Unknown exacerbating factors. PFSH Past Medical History Bipolar Disorder: Yes Anxiety: Yes Depression: Yes Diabetes: Yes Deep Vein Thrombosis: Yes Endocrine: Yes Hypertension: Yes Migraines: Yes Schizophrenia: Yes (schizoaffective) Menopausal: No : 1 Para: 1 Miscarriage: 0 : 0 Past Surgical History Section: Yes (2009) Endocrine Surgery: Yes Gynecologic Surgery: Yes (Left oophorectomy) Social History Alcohol Use: Yes (OCCASIONAL) Tobacco Use: Yes (1PPD) Substance Use: No Allergies-Medications (Allergen,Severity, Reaction): Coded Allergies: penicillin G (Unverified Allergy, Intermediate, hives, 07/07/17) Reported Meds & Prescriptions Reported Meds & Active Scripts Active Glucophage (Metformin HCl) 500 Mg Tab 500 Mg PO BIDPC Haloperidol 10 Mg Tab 10 Mg PO DIRECTED 1 in am, 2 hs Haldol Decanoate Inj (Haloperidol Decanoate) 100 Mg/Ml Inj 100 Mg IM Q28D Next injection due 04/23 Ventolin Hfa 18 GM Inh (Albuterol Sulfate) 90 Mcg/Act Aer 2 Puff INH Q4-6H PRN Lisinopril 5 Mg Tab 5 Mg PO DAILY Trazodone (Trazodone HCl) 50 Mg Tab 100 Mg PO HS 0 Days Order is to update med rec only. Pt has supply at home. Review of Systems Except as stated in HPI: all other systems reviewed are Neg Psychiatric: Positive: Disorder of Thought, Mood Disorder Physical Exam Narrative GENERAL: Obese, well-developed, alert -[place] female. Presenting in no acute distress. SKIN: Warm and dry. HEAD: Atraumatic. Normocephalic. EYES: Pupils equal and round. No scleral icterus. No injection or drainage. ENT: No nasal bleeding or discharge. Mucous membranes pink and moist. NECK: Trachea midline. No JVD. CARDIOVASCULAR: Regular rate and rhythm. RESPIRATORY: No accessory muscle use. Clear to auscultation. Breath sounds equal bilaterally. GASTROINTESTINAL: Abdomen soft, non-tender, nondistended. Hepatic and splenic margins not palpable. MUSCULOSKELETAL: Extremities without clubbing, cyanosis, or edema. No obvious deformities. NEUROLOGICAL: Awake and alert. No obvious cranial nerve deficits. Motor grossly within normal limits. Five out of 5 muscle strength in the arms and legs. Normal speech. PSYCHIATRIC: Appropriate mood and affect; insight and judgment normal. Data Data Last Documented VS Vital Signs Date Time Temp Pulse Resp B/P (MAP) Pulse Ox O2 Delivery O2 Flow Rate FiO2 04/02/18 19:10 98.6 85 18 149/83 (105) Orders Orders Complete Blood Count With Diff (04/02/18 19:16) Comprehensive Metabolic Panel (04/02/18 19:16) Thyroid Stimulating Hormone (04/02/18 19:16) Urinalysis - C+S If Indicated (04/02/18 19:16) Psych Screen (04/02/18 19:16) Drug Screen, Random Urine (04/02/18 19:16) Diet 1800 Ada Cons Carb (04/03/18 Breakfast) Haloperidol Inj (Haldol Inj) (04/02/18 19:45) Lorazepam Inj (Ativan Inj) (04/02/18 19:45) Diphenhydramine Inj (Benadryl Inj) (04/02/18 19:45) Potassium Chloride (Kcl) (04/02/18 21:30) Labs Laboratory Tests Test 04/02/18 19:35 White Blood Count 8.6 TH/MM3 Red Blood Count 5.30 MIL/MM3 Hemoglobin 14.6 GM/DL Hematocrit 43.4 % Mean Corpuscular Volume 81.9 FL Mean Corpuscular Hemoglobin 27.6 PG Mean Corpuscular Hemoglobin Concent 33.7 % Red Cell Distribution Width 13.5 % Platelet Count 243 TH/MM3 Mean Platelet Volume 9.3 FL Neutrophils (%) (Auto) 53.4 % Lymphocytes (%) (Auto) 37.0 % Monocytes (%) (Auto) 6.4 % Eosinophils (%) (Auto) 2.2 % Basophils (%) (Auto) 1.0 % Neutrophils # (Auto) 4.6 TH/MM3 Lymphocytes # (Auto) 3.2 TH/MM3 Monocytes # (Auto) 0.6 TH/MM3 Eosinophils # (Auto) 0.2 TH/MM3 Basophils # (Auto) 0.1 TH/MM3 CBC Comment DIFF FINAL Differential Comment Urine Color COLORLESS Urine Turbidity CLEAR Urine pH 5.5 Urine Specific [place] 1.001 Urine Protein NEG mg/dL Urine Glucose (UA) NEG mg/dL Urine Ketones NEG mg/dL Urine Occult Blood TRACE Urine Nitrite NEG Urine Bilirubin NEG Urine Urobilinogen LESS THAN 2.0 MG/DL Urine Leukocyte Esterase NEG Urine Squamous Epithelial Cells <1 /hpf Microscopic Urinalysis Comment CULT NOT INDICATED Blood Urea Nitrogen 6 MG/DL Creatinine 0.90 MG/DL Random Glucose 176 MG/DL Total Protein 7.1 GM/DL Albumin 3.6 GM/DL Calcium Level 8.7 MG/DL Alkaline Phosphatase 112 U/L Aspartate Amino Transf (AST/SGOT) 23 U/L Alanine Aminotransferase (ALT/SGPT) 47 U/L Total Bilirubin 0.3 MG/DL Sodium Level 135 MEQ/L Potassium Level 3.4 MEQ/L Chloride Level 101 MEQ/L Carbon Dioxide Level 23.3 MEQ/L Anion Gap 11 MEQ/L Estimat Glomerular Filtration Rate 87 ML/MIN Thyroid Stimulating Hormone 3rd Gen 0.890 uIU/ML Urine Opiates Screen NEG Urine Barbiturates Screen NEG Urine Amphetamines Screen NEG Urine Benzodiazepines Screen NEG Urine Cocaine Screen NEG Urine Cannabinoids Screen NEG MDM Medical Decision Making Medical Screen Exam Complete: Yes Emergency Medical Condition: Yes Interpretation(s) Vital Signs Date Time Temp Pulse Resp B/P (MAP) Pulse Ox O2 Delivery O2 Flow Rate FiO2 04/02/18 19:10 98.6 85 18 149/83 (105) Differential Diagnosis Mood disorder versus psychosis versus metabolic abnormality versus suicidal ideations versus other Narrative Course Patient is a well-appearing 33-year-old female presenting under Parker act for psychiatric evaluation. Patient's vital signs are stable. Mental health screening discussed with the patient. Psychiatric screen ordered. Patient became aggressive and combative on the unit. Haldol, Benadryl and Ativan was ordered. Labs reviewed no acute findings other than a potassium level of 3.4, or replacement ordered. Patient is medically clear for psychiatric evaluation. Patient is currently resting comfortably. Diagnosis Primary Impression: Medical clearance for psychiatric admission Condition: Stable Jody Hong April 02, 2018 20:13
[2018-04-02 20:35] LABS: ALBUMIN 3.6 GM/DL (3.4-5.0); AST (GOT) 23 U/L (15-37); BICARBONATE 23.3 MEQ/L (21.0-32.0); BLOOD UREA NITROGEN 6 MG/DL (7-18); CALCIUM 8.7 MG/DL (8.5-10.1); CHLORIDE 101 MEQ/L (98-107); GLOMERULAR FILTRATION RATE 87 ML/MIN (>89); GLUCOSE,RANDOM 176 MG/DL (74-106); SODIUM (NA) 135 MEQ/L (136-145)
[2018-04-02 20:46] LABS: ALKALINE PHOSPHATASE 112 U/L (45-117); ALT (GPT) 47 U/L (10-53); TOTAL BILIRUBIN ADULT 0.3 MG/DL (0.2-1.0); TOTAL PROTEIN 7.1 GM/DL (6.4-8.2)
[2018-04-02] MEDS ORDERED: POTASSIUM CHLORIDE 10 MEQ CONTROLLED RELEASE TAB PO ONE (21:30)
[2018-04-03 00:29] VITALS: BP 129/91; PULSE 68; RESP 18; O2SAT 99
[2018-04-03] MEDS ORDERED: ACETAMINOPHEN 325 MG TAB PO PRN (04:30)
[2018-04-03] MEDS ORDERED: MAGNESIUM HYDROXIDE SUSP 30 ML CUP PO PRN (04:30)
[2018-04-03] MEDS ORDERED: ALUMINUM/MAGNESIUM/SIMETH 30 ML CUP PO PRN (04:30)
[2018-04-03] MEDS ORDERED: NICOTINE 21 MG/24 HR PATCH T-DERMAL PRN (04:30)
[2018-04-03] MEDS ORDERED: DEXTROSE 50% IN WATER 50 ML VIAL(D50) IV PUSH PRN (04:45)
[2018-04-03] MEDS ORDERED: GLUCAGON 1 MG/ML VIAL OTHER PRN (04:45)
[2018-04-03 05:32] VITALS: BP 139/88; PULSE 79; RESP 17; O2SAT 97
[2018-04-03 05:52] VITALS: BP 155/90; PULSE 80; RESP 18; TEMP 97.4; O2SAT 100
[2018-04-03] MEDS: REMOVE OLD PATCH T-DERMAL SCH (08:01)
[2018-04-03] MEDS: INSULIN ASPART SUPPLEMENTAL SCALE SQ SCH ×4 (08:01→20:45)
[2018-04-03] MEDS: metFORMIN HCL 500 MG TAB PO SCH ×2 (09:39→17:50)
[2018-04-03] MEDS: LISINOPRIL 5 MG TAB PO SCH (09:39)
[2018-04-03] MEDS: BENZTROPINE MESYLATE 1 MG TAB PO SCH ×2 (09:39→20:45)
[2018-04-03] MEDS: HALOPERIDOL 5 MG TAB PO SCH ×2 (09:39→20:45)
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
[2018-04-03] MEDS ORDERED: LORazepam 1 MG TAB PO PRN (12:45)
[2018-04-03] MEDS ORDERED: traZODone HCL 100 MG TAB PO SCH (21:00)
[2018-04-04 06:15] VITALS: BP 137/90; PULSE 84; RESP 18; TEMP 98.6; O2SAT 97
[2018-04-04 07:03] LABS: BICARBONATE 26.7 MEQ/L (21.0-32.0); CALCIUM 8.8 MG/DL (8.5-10.1); CREATININE 0.67 MG/DL (0.50-1.00)
[2018-04-04] MEDS: INSULIN ASPART SUPPLEMENTAL SCALE SQ SCH ×2 (08:00→11:43)
[2018-04-04] MEDS: REMOVE OLD PATCH T-DERMAL SCH (09:00)
[2018-04-04] MEDS: LISINOPRIL 5 MG TAB PO SCH (09:02)
[2018-04-04] MEDS: BENZTROPINE MESYLATE 1 MG TAB PO SCH (09:02)
[2018-04-04] MEDS: HALOPERIDOL 5 MG TAB PO SCH (09:02)
[2018-04-04] MEDS: metFORMIN HCL 500 MG TAB PO SCH (09:02)
[2018-04-04] MEDS ORDERED: LISI-519 PO (13:59)
[2018-04-04] MEDS ORDERED: HALO5TAB PO (13:59)
[2018-04-04] MEDS ORDERED: TRAZ100T10 PO (13:59)
[2018-04-04] MEDS ORDERED: METF500 PO (13:59)
[2018-04-04] MEDS ORDERED: Benztropine PO (14:03)
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
== END 2018-04-04 15:30 | disposition home or self-care (01) | DRG 885 ==
LOC: NEDAMB 19:01 → NEDA 04-03 04:29 → H270 04-03 05:45
PROVIDERS: ADMIT Student in an Organized Health Care Education/Training Program; ATTEND Student in an Organized Health Care Education/Training Program
DX: F25.9 Schizoaffective disorder, unspecified (principal); E11.9 Type 2 diabetes mellitus without complications; R45.851 Suicidal ideations; I10 Essential (primary) hypertension; F17.210 Nicotine dependence, cigarettes, uncomplicated; Z81.8 Family history of other mental and behavioral disorders; Z88.0 Allergy status to penicillin; Z79.84 Long term (current) use of oral hypoglycemic drugs
CPT/HCPCS: 80048; 80053; 80307; 81001; 82948; 84443; 85025; 96372; J1200; J1630; J1815; J2060

== ENCOUNTER 2018-04-10 14:21 | Inpatient (IN) ==
[2018-05-05] MEDS ORDERED: Acetaminophen 325 MG Tablet ONE (06:42)
[2018-05-05] MEDS ORDERED: Famotidine 20 MG Tablet ONE (08:18)
[2018-05-05] MEDS ORDERED: Acetaminophen 325 MG Tablet PO PRN (08:19)
[2018-05-05] MEDS ORDERED: Aluminum/Magnesium/Simethacone Susp 30 ML UDC PO PRN (08:21)
[2018-05-05] MEDS: Famotidine 20 MG Tablet PO SCH ×2 (13:26→21:38)
--- NOTE | 2018-05-05 14:22 | P.PNPSY ---
Subjective Remarks: Patient was seen and case discussed with nursing. Patient had a reaction to Clozaril 2 days ago and it was held, see note from yesterday. She appears less psychotic today. We had a discussion about her delusion of being towards the end she believed that she was not . However, she continues to respond to auditory hallucinations from the Holy Ghost. She is social on the unit. Compliant with her medications. No outbursts Mental Status Examination Appearance: Appropriate Consciousness: Alert Orientation: x4 Motor Activity: Normal gait Speech: Unremarkable Language: Adequate Fund of Knowledge: Adequate Attention and Concentration: Easily distracted Memory: Unremarkable Mood: Appropriate Affect: Appropriate Thought Process & Associations: Circumstantial Thought Content: Bizarre thinking Hallucination Type: Auditory Delusion Type: Bizarre Suicidal Ideation: No Suicidal Plan: No Suicidal Intention: No Homicidal Ideation: No Homicidal Plan: No Homicidal Intention: No Insight: Poor Judgment: Poor Assessment and Plan - Assessment (1) Schizoaffective disorder Code(s): F25.9 - Schizoaffective disorder, unspecified Status: Acute - Plan Plan: Estimated LOS: [] days Justification for Continued Inpatient Stay: Patient would decompensate in a less restrictive setting
[2018-05-05] MEDS: traZODone 100 MG Tablet PO SCH (21:38)
[2018-05-06] MEDS: Famotidine 20 MG Tablet PO SCH ×2 (08:36→21:22)
[2018-05-06] MEDS: traZODone 100 MG Tablet PO SCH (21:22)
--- NOTE | 2018-05-06 22:03 | P.PNPSY ---
Subjective Remarks: Patient seen for follow up; chart reviewed. Discussion with nursing staff reported that the patient compliant with treatment, calm and cooperative. Patient was found in day room noted to be in good spirits. Patient states that she had clozapine discontinued due to her having had palpitations. She reports continued good mood, denies any AH nor any delusions but continued with orthodoxy focus although less intense without bizarre delusions. Review of Systems All other systems reviewed negative except as stated in HPI Mental Status Examination Appearance: Appropriate Consciousness: Alert Orientation: x4 Motor Activity: Normal gait Speech: Unremarkable Language: Adequate Fund of Knowledge: Adequate Attention and Concentration: Easily distracted Memory: Unremarkable Mood: Appropriate Affect: Appropriate Thought Process & Associations: Intact, Linear Thought Content: Appropriate Hallucination Type: None Delusion Type: None Suicidal Ideation: No Suicidal Plan: No Suicidal Intention: No Homicidal Ideation: No Homicidal Plan: No Homicidal Intention: No Insight: Fair Judgment: Impulsive Assessment and Plan - Assessment (1) Schizoaffective disorder Code(s): F25.9 - Schizoaffective disorder, unspecified Status: Acute - Plan Plan: Patient had clozapine discontinued over the weekend due to palpitations, although considering that palpitations were present patient did not endorse any accompanying symptom and workup was not done to determine if symptoms were related to clozapine. Therefore it would be a consideration that clozapine would continue to be an alternative treatment in the future to re-challenge. Patient to continue with paliperidone. Continue to monitor mood and behavior. Patient noted with continued improvement, discharge likely tomorrow. Justification for Continued Inpatient Stay: At risk for further decompensation at lower level of care.
[2018-05-07] MEDS: Famotidine 20 MG Tablet PO SCH (08:53)
--- NOTE | 2018-05-07 12:37 | ECG ---
Date Performed: 05/07/2018 Time Performed: 08:16:31 PTAGE: 33 years EKG: Sinus rhythm WITH OCCASIONAL VENTRICULAR PREMATURE COMPLEXES NONSPECIFIC T-WAVE ABNORMALITY BORDERLINE ECG Compar ed to PREVIOUS TRACING T waves are flattened PREVIOUS TRACIN03/24/2018 08.23 DOCTOR: Kenndey Jameson Interpretating Date/Time 05/07/2018 12:36:29
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
[2018-05-30] MEDS ORDERED: Haloperidol Decanoate Inj 50 MG/ML Ampul IM SCH (09:00)
== END 2018-05-07 16:55 | disposition home or self-care (01) ==
LOC: H260 20:30
PROVIDERS: ADMIT Student in an Organized Health Care Education/Training Program; ATTEND Student in an Organized Health Care Education/Training Program

== ENCOUNTER 2018-07-06 13:32 | Inpatient (IN) ==
[2018-07-06] MEDS ORDERED: Sod Chloride 0.9% Inj 1,000 ML IV.SIG ONE ×2 (13:40)
[2018-07-06] MEDS ORDERED: Dextrose 50% in Water 50 ML Vial IV.PUSH PRN (13:40)
[2018-07-06 13:46] VITALS: TEMP 98.4
--- NOTE | 2018-07-06 13:50 | ED ---
HPI General Chief Complaint: Altered Mental Status Stated Complaint: Medical Time Seen by Provider: 07/06/18 13:37 Source: EMS and old records reviewed Mode of arrival: EMS Limitations: altered mental status History of Present Illness MD complaint: altered mental status and confusion Onset (ago): hour(s) (today) Severity: moderate Consistency of symptoms: constant Context: history of similar presentation and diabetes Associated symptoms: other (unable to determine) Treatments prior to arrival: IV fluid (500 cc) Related Data Home Medications Medication Instructions Recorded Confirmed albuterol sulfate 90 mcg INHALATION PRN 05/04/18 05/04/18 benztropine 1 mg PO DAILY 05/04/18 05/04/18 haloperidol 5 mg PO TID 05/04/18 05/23/18 haloperidol decanoate 100 mg IM Q4W 05/04/18 05/23/18 lisinopril 5 mg PO DAILY 05/04/18 05/23/18 metformin 500 mg PO BID 05/04/18 05/23/18 trazodone 100 mg PO DAILY 05/04/18 05/23/18 Allergies Allergy/AdvReac Type Severity Reaction Status Date / Time penicillin G Allergy Intermediate hives Verified 05/06/18 19:41 Review of Systems ROS Unobtainable ROS Unobtainable: unobtainable due to mental condition and unobtainable due to mental status [facility] Social History Social History Substance History: Unable to Obtain Second Hand Smoke Exposure: No Smoking Status: Current some day smoker Tobacco Type: Cigarettes How Often Do You Have a Drink Containing Alcohol: Unable to Obtain Recent Travel in [facility] within the Last 8 Weeks: No Recent Out of Country Travel within the Last 8 Weeks: No Exam Const General: well developed and disheveled Nutritional Appearance: obese Orientation: alert, awake and confused Limitations: altered mental status HENMT Head: normal to inspection, normocephalic, atraumatic and other (villasenor, granular substance around her mouth) Eyes Alignment and Position: alignment normal and position abnormal Conjunctivae: conjunctivae normal Sclera: sclerae normal EOM: EOM intact bilaterally Neck Neck: normal visual inspection and full ROM Chest Chest: normal inspection of the chest Resp Effort & Inspection: tachypneic Auscultation: clear to auscultation bilaterally Cardio Rate: tachycardic Rhythm: regular rhythm GI Inspection: normal to inspection Palpation: soft Back/Spine/Pelvis Cervical Spine: cervical ROM normal Thoracic/Lumbar Spine: thoraco-lumbar ROM normal Skin General: no rashes or lesions noted, turgor normal and dry skin Neuro General: alert, awake, oriented x3, moves all extremities and CN's II-XI intact bilaterally Extrem General: normal to inspection and full ROM Psych Appearance: disheveled Thought Process: illogical and perseverating Thought Content: delusions Judgment: limited Course Hospital Course: While receiving her IV fluids and while awaiting her workup, the patient pulled out her IV and walked to the nurses station. She was redirected back to her bed and the IV was restarted. Despite IV fluids, the patient continued to have a sinus tachycardia at about 170. She was also tachypneic at about 60. She was given Ativan with no change in her heart rate or respiratory rate. This was followed by an adenosine bolus of 6 mg. Again, there was no change in heart rate. She was then given cortisone 0.25 mg/kg. Her heart rate then slowed. She appears to be in atrial fibrillation. In the meantime, the patient's respiratory status started to decline. She now has wheezing. Her sats dropped down into the 70s. She was placed on a nonrebreather mask. Solu-Medrol and nebs were ordered. It took a very long time to get her chemistries back. Her troponin is elevated at about 1.9. I have called the bread wrapping machine feeder. He has asked that I consult cardiology regarding both the elevated heart rate and the elevated troponin. Of note, the heart rate is coming down with Cardizem. The patient is now on a Cardizem drip. Reevaluation(s) Reevaluation #1: Dr. Guajardo Time: 17:10 Reevaluation #2: Dr. Mares Time: 17:21 Initial Documented Vital Signs Temperature 98.4 F 07/06/18 13:36 Pulse Rate 178 H 07/06/18 13:36 Respiratory Rate 18 07/06/18 13:36 Blood Pressure 143/87 H 07/06/18 13:36 Pulse Oximetry 94 L 07/06/18 13:36 Last Documented Vital Signs Temperature 98.4 F 07/06/18 13:36 Pulse Rate 130 H 07/06/18 18:00 Respiratory Rate 26 H 07/06/18 18:00 Blood Pressure 154/93 H 07/06/18 18:00 Pulse Oximetry 99 07/06/18 17:45 Procedures Intubation Time Out Performed: Yes Sedative: etomidate Mg Given: 20 Paralytic: succinylcholine Mg Given: 150 Laryngoscope: fiber optic video scope Assist Device Used: fiber optic device ET Tube Size: 8 ET Tube Uncuffed: No Tube Secured Depth (cm): 24 Tube Secured Location: lips Tube Placement Confirmation: visualized tube passing through cords, equal breath sounds bilaterally and no breath sounds over epigastrium Patient Tolerated Procedure: well Intubation Complications: none Critical Care Time Critical Care Time: Yes Total Critical Care Time: 60 Attestation: Time to perform other separately billable procedures was not included in the critical care time. My time did not include minutes spent treating any other patients simultaneously or on activities that did not directly contribute to the patient's treatment. The services I provided to this patient were to treat and/or prevent clinically significant deterioration due to tachycardia, respiratory distress I provided critical care services requiring my management, as noted below: Chart data review, documentation time, medication orders and management, vital sign assessments/reviewing monitor data, ordering and reviewing lab tests, ordering and interpreting/reviewing x-rays and diagnostic studies, care of the patient and discussion of the patient with the admitting physicians Medical Decision Making MDM Narrative Medical decision making narrative: This patient is brought to us via EMS following an apparent overdose. Family found her with an altered mental status. There was a pill bottle near her. They presumed that she had taken the pills. EVAC reports that the pill bottle was for Zoloft and that it was filled a month ago and that it had 1 pill left. EVAC noted tachycardia and tachypnea. Her fingerstick blood sugar was over 500. They treated her in route with a 500 cc fluid bolus. The patient was initially treated with IV fluids for presumed DKA. It took a very long time for her chemistries to result. Insulin was not started until her potassium was known. At the same time that her potassium and glucose were reported, an elevated troponin was reported. In the meantime, the patient's status seem to be getting worse rather than better. She developed significant difficulty breathing. Sats dropped into the 70s. She was intubated. Her heart rate was eventually controlled with Cardizem. She is being admitted to the intensive care unit for further evaluation and treatment of altered mental status, tachycardia, tachypnea, DKA, elevated troponin. Medical Screen Exam Complete: Yes Emergency Medical Condition: Yes Differential Diagnosis Differential Diagnosis: Differential diagnosis of altered mental status includes but is not limited to infection, electrolyte abnormality, neurological event, intoxication, encephalitis, meningitis Medical Records Medical records reviewed: Yes I reviewed the patient's medical records. This patient has a history of schizoaffective disorder. She also has a history of hypertension, diabetes and previous DVT. She has presented here previously with a very disorganized thought process. Lab Data Lab results reviewed: Yes I reviewed the patient's lab results. Result diagrams: 07/06/18 13:55 07/06/18 13:55 POC Results POC Urine Results Negative Lab Results 07/06/18 07/06/18 07/06/18 Range/Units 13:00 13:55 13:55 WBC 15.6 H (4.0-11.0) th/mm3 RBC 4.86 (4.00-5.30) mil/mm3 Hgb 13.5 (11.6-15.3) gm/dL Hct 41.2 (35.0-46.0) % MCV 84.6 (80.0-100.0) fL MCH 27.7 (27.0-34.0) pg MCHC 32.8 (32.0-36.0) % RDW 13.7 (11.6-17.2) % Plt Count 158 (150-450) th/mm3 MPV 9.0 (7.0-11.0) fL Neut % (Auto) 78.6 H (16.0-70.0) % Lymph % (Auto) 15.9 (9.0-44.0) % Piute % (Auto) 5.1 (0.0-8.0) % Eos % (Auto) 0.0 (0.0-4.0) % Baso % (Auto) 0.4 (0.0-2.0) % Neut # (Auto) 12.2 H (1.8-7.7) th/mm3 Lymph # (Auto) 2.5 (1.0-4.8) th/mm3 Piute # (Auto) 0.8 (0.0-0.9) th/mm3 Eos # (Auto) 0.0 (0.0-0.4) th/mm3 Baso # (Auto) 0.1 (0.0-0.2) th/mm3 WBC Differential . Differential Comment Auto diff final PT (9.8-11.6) sec INR Ratio APTT (24.3-30.1) sec Puncture Site Line by rn Patient Temperature 98.6 VBG pH 7.38 (7.360-7.400) VBG pCO2 26 L (44-48) mmHG VBG pO2 30 L (35-40) mmHG VBG HCO3 15 L* (22-26) mmol/L VBG O2 Saturation 50 L (70-76) % VBG O2 Content 8.6 L (9.0-17.0) Vol % VBG Base Excess -9.2 L (-2-2) mmol/L VBG Carboxyhemoglobin 2.1 (0-4) % VBG Methemoglobin 0.5 (0-2) % Hemoglobin 12.2 (12.0-16.0) G/DL Inspired O2 21 % Critical Value Yes Sodium (136-145) meq/L Potassium (3.5-5.1) meq/L Chloride (98-107) meq/L Carbon Dioxide (21.0-32.0) meq/L Anion Gap (5-15) meq/L BUN (7-18) mg/dL Creatinine (0.50-1.00) mg/dL Estimated GFR (>89) mL/min Random Glucose (74-106) mg/dL Calcium (8.5-10.1) mg/dL Magnesium 1.2 L (1.5-2.5) mg/dL Total Bilirubin (0.2-1.0) mg/dL AST (15-37) U/L ALT (10-53) U/L Alkaline Phosphatase (45-117) U/L Troponin I (0.02-0.05) ng/mL Total Protein (6.4-8.2) g/dL Albumin (3.4-5.0) g/dL Beta-Hydroxybutyric Acd (0.00-0.39) mmol/L Urine Color (Yellw/Straw) Urine Clarity (Clear) Urine pH (5.0-8.5) Ur Specific Braddock (1.002-1.035) Urine Protein (Neg-Trace) mg/dL Urine Glucose (UA) (Negative) mg/dL Urine Ketones (Negative) mg/dL Urine Occult Blood (Negative) Urine Nitrate (Negative) Urine Bilirubin (Negative) Urine Urobilinogen (Less than 2) mg/dL Ur Leukocyte Esterase (Negative) Urine RBC (0-3) /hpf Urine WBC (0-5) /hpf Ur Squamous Epith Cells (0-5) /hpf Urine Mucus (Occasional) /lpf Micro UA Comment Ur Microscopic Review Urine Culture Comments Urine Opiates Screen (Neg) Ur Barbiturates Screen (Neg) Ur Amphetamines Screen (Neg) U Benzodiazepines Scrn (Neg) Urine Cocaine Screen (Neg) U Cannabinoids Screen (Neg) 07/06/18 07/06/18 07/06/18 Range/Units 13:55 14:09 14:09 WBC (4.0-11.0) th/mm3 RBC (4.00-5.30) mil/mm3 Hgb (11.6-15.3) gm/dL Hct (35.0-46.0) % MCV (80.0-100.0) fL MCH (27.0-34.0) pg MCHC (32.0-36.0) % RDW (11.6-17.2) % Plt Count (150-450) th/mm3 MPV (7.0-11.0) fL Neut % (Auto) (16.0-70.0) % Lymph % (Auto) (9.0-44.0) % Piute % (Auto) (0.0-8.0) % Eos % (Auto) (0.0-4.0) % Baso % (Auto) (0.0-2.0) % Neut # (Auto) (1.8-7.7) th/mm3 Lymph # (Auto) (1.0-4.8) th/mm3 Piute # (Auto) (0.0-0.9) th/mm3 Eos # (Auto) (0.0-0.4) th/mm3 Baso # (Auto) (0.0-0.2) th/mm3 WBC Differential Differential Comment PT (9.8-11.6) sec INR Ratio APTT (24.3-30.1) sec Puncture Site Patient Temperature VBG pH (7.360-7.400) VBG pCO2 (44-48) mmHG VBG pO2 (35-40) mmHG VBG HCO3 (22-26) mmol/L VBG O2 Saturation (70-76) % VBG O2 Content (9.0-17.0) Vol % VBG Base Excess (-2-2) mmol/L VBG Carboxyhemoglobin (0-4) % VBG Methemoglobin (0-2) % Hemoglobin (12.0-16.0) G/DL Inspired O2 % Critical Value Sodium 129 L (136-145) meq/L Potassium 4.8 (3.5-5.1) meq/L Chloride 94 L (98-107) meq/L Carbon Dioxide 14.6 L (21.0-32.0) meq/L Anion Gap 20 H (5-15) meq/L BUN 9 (7-18) mg/dL Creatinine 1.47 H (0.50-1.00) mg/dL Estimated GFR 49 L (>89) mL/min Random Glucose 473 H* (74-106) mg/dL Calcium 8.7 (8.5-10.1) mg/dL Magnesium (1.5-2.5) mg/dL Total Bilirubin 0.8 (0.2-1.0) mg/dL AST 58 H (15-37) U/L ALT 45 (10-53) U/L Alkaline Phosphatase 104 (45-117) U/L Troponin I 1.94 H* (0.02-0.05) ng/mL Total Protein 7.5 (6.4-8.2) g/dL Albumin 3.5 (3.4-5.0) g/dL Beta-Hydroxybutyric Acd 1.50 H (0.00-0.39) mmol/L Urine Color Yellow (Yellw/Straw) Urine Clarity Hazy H (Clear) Urine pH 6.0 (5.0-8.5) Ur Specific Braddock 1.028 (1.002-1.035) Urine Protein 30 H (Neg-Trace) mg/dL Urine Glucose (UA) 500 or greater (Negative) mg/dL Urine Ketones 20 (Negative) mg/dL Urine Occult Blood Moderate H (Negative) Urine Nitrate Negative (Negative) Urine Bilirubin Negative (Negative) Urine Urobilinogen Less than 2 (Less than 2) mg/dL Ur Leukocyte Esterase Negative (Negative) Urine RBC 1 (0-3) /hpf Urine WBC 1 (0-5) /hpf Ur Squamous Epith Cells <1 (0-5) /hpf Urine Mucus Few H (Occasional) /lpf Micro UA Comment Cath-culture not ind Ur Microscopic Review Not Reportable Urine Culture Comments Cath-cult not ind Urine Opiates Screen Neg (Neg) Ur Barbiturates Screen Neg (Neg) Ur Amphetamines Screen Neg (Neg) U Benzodiazepines Scrn Neg (Neg) Urine Cocaine Screen Neg (Neg) U Cannabinoids Screen Neg (Neg) 07/06/18 Range/Units 16:00 WBC (4.0-11.0) th/mm3 RBC (4.00-5.30) mil/mm3 Hgb (11.6-15.3) gm/dL Hct (35.0-46.0) % MCV (80.0-100.0) fL MCH (27.0-34.0) pg MCHC (32.0-36.0) % RDW (11.6-17.2) % Plt Count (150-450) th/mm3 MPV (7.0-11.0) fL Neut % (Auto) (16.0-70.0) % Lymph % (Auto) (9.0-44.0) % Piute % (Auto) (0.0-8.0) % Eos % (Auto) (0.0-4.0) % Baso % (Auto) (0.0-2.0) % Neut # (Auto) (1.8-7.7) th/mm3 Lymph # (Auto) (1.0-4.8) th/mm3 Piute # (Auto) (0.0-0.9) th/mm3 Eos # (Auto) (0.0-0.4) th/mm3 Baso # (Auto) (0.0-0.2) th/mm3 WBC Differential Differential Comment PT 11.9 H (9.8-11.6) sec INR 1.2 Ratio APTT 28.4 (24.3-30.1) sec Puncture Site Patient Temperature VBG pH (7.360-7.400) VBG pCO2 (44-48) mmHG VBG pO2 (35-40) mmHG VBG HCO3 (22-26) mmol/L VBG O2 Saturation (70-76) % VBG O2 Content (9.0-17.0) Vol % VBG Base Excess (-2-2) mmol/L VBG Carboxyhemoglobin (0-4) % VBG Methemoglobin (0-2) % Hemoglobin (12.0-16.0) G/DL Inspired O2 % Critical Value Sodium (136-145) meq/L Potassium (3.5-5.1) meq/L Chloride (98-107) meq/L Carbon Dioxide (21.0-32.0) meq/L Anion Gap (5-15) meq/L BUN (7-18) mg/dL Creatinine (0.50-1.00) mg/dL Estimated GFR (>89) mL/min Random Glucose (74-106) mg/dL Calcium (8.5-10.1) mg/dL Magnesium (1.5-2.5) mg/dL Total Bilirubin (0.2-1.0) mg/dL AST (15-37) U/L ALT (10-53) U/L Alkaline Phosphatase (45-117) U/L Troponin I (0.02-0.05) ng/mL Total Protein (6.4-8.2) g/dL Albumin (3.4-5.0) g/dL Beta-Hydroxybutyric Acd (0.00-0.39) mmol/L Urine Color (Yellw/Straw) Urine Clarity (Clear) Urine pH (5.0-8.5) Ur Specific Braddock (1.002-1.035) Urine Protein (Neg-Trace) mg/dL Urine Glucose (UA) (Negative) mg/dL Urine Ketones (Negative) mg/dL Urine Occult Blood (Negative) Urine Nitrate (Negative) Urine Bilirubin (Negative) Urine Urobilinogen (Less than 2) mg/dL Ur Leukocyte Esterase (Negative) Urine RBC (0-3) /hpf Urine WBC (0-5) /hpf Ur Squamous Epith Cells (0-5) /hpf Urine Mucus (Occasional) /lpf Micro UA Comment Ur Microscopic Review Urine Culture Comments Urine Opiates Screen (Neg) Ur Barbiturates Screen (Neg) Ur Amphetamines Screen (Neg) U Benzodiazepines Scrn (Neg) Urine Cocaine Screen (Neg) U Cannabinoids Screen (Neg) Imaging Data Radiologist's impression: Chest X-Ray 07/06/18 17:08 CONCLUSION: Possible mild CHF versus focal infiltrate left perihilar location and the cardiac silhouette appears enlarged. ECG Data EKG Prior to Arrival: Yes Attestation: I personally reviewed and interpreted this ECG as follows: Discharge Plan Discharge Disposition Patient Disposition: 30 Still Patient Discharge Details Diagnosis: DKA (diabetic ketoacidoses), Atrial fibrillation with RVR, Acute respiratory distress, Elevated troponin Physicians Team ED Provider: Anabel Nj Primary Care Provider: UNKNOWN, Attending Provider: Ambar Dow Other Providers: Beka Mares Discharge Interventions Interventions: Vital Signs Last Done: 07/06/18 17:25 Status ED Status: Admitted Patient
[2018-07-06 14:06] LABS: VBG Base Excess -9.2 mmol/L (-2-2); VBG Blood Gas Oxygen Content 8.6 Vol % (9.0-17.0); VBG PCO2 26 mmHG (44-48); VBG PH 7.38 (7.360-7.400); VBG PO2 30 mmHG (35-40)
[2018-07-06 14:40] LABS: Baso # (Auto) 0.1 th/mm3 (0.0-0.2); Baso % (Auto) 0.4 % (0.0-2.0); Hematocrit 41.2 % (35.0-46.0); Hemoglobin 13.5 gm/dL (11.6-15.3); Lymph # (Auto) 2.5 th/mm3 (1.0-4.8); Lymph % (Auto) 15.9 % (9.0-44.0); Mean Corpuscular HGB Conc 32.8 % (32.0-36.0); Mean Corpuscular Hemoglobin 27.7 pg (27.0-34.0); Mean Corpuscular Volume 84.6 fL (80.0-100.0); Mono # (Auto) 0.8 th/mm3 (0.0-0.9); Mono % (Auto) 5.1 % (0.0-8.0); Neut # (Auto) 12.2 th/mm3 (1.8-7.7); Neut % (Auto) 78.6 % (16.0-70.0); Platelet Count 158 th/mm3 (150-450); Red Blood Count 4.86 mil/mm3 (4.00-5.30); Red Cell Distribution Width 13.7 % (11.6-17.2); White Blood Count 15.6 th/mm3 (4.0-11.0)
[2018-07-06 14:44] LABS: Bilirubin,Urine Negative (Negative); Clarity,Urine Hazy (Clear); Color,Urine Yellow (Yellw/Straw); Glucose,Urine (UA) 500 or Greater mg/dL (Negative); Leukocyte Esterase,Urine Negative (Negative); Mucus,Urine Few /lpf (Occasional); Nitrite,Urine Negative (Negative); Specific Gravity,Urine 1.028 (1.002-1.035); Squamous Epithelial Cell,Urine <1 /hpf (0-5)
[2018-07-06 14:48] LABS: Amphetamine Screen,Urine Neg (Neg); Barbiturate Screen,Urine Neg (Neg); Cannabinoid Screen,Urine Neg (Neg); Cocaine Screen,Urine Neg (Neg)
[2018-07-06 14:57] LABS: Opiate Screen,Urine Neg (Neg)
[2018-07-06] MEDS ORDERED: Sod Chloride 0.9% Inj 1,000 ML IV.SIG SCH ×2 (15:45→16:15)
[2018-07-06] MEDS ORDERED: Adenosine Inj 6 MG/2 ML Syringe IV.PUSH ONE ×2 (16:14→22:38)
[2018-07-06] MEDS ORDERED: dilTIAZem Inj 50 MG/10 ML Vial IV.PUSH ONE (16:25)
[2018-07-06 16:27] LABS: Anion Gap 20 meq/L (5-15)
[2018-07-06 16:30] LABS: Alanine Aminotransferase 45 U/L (10-53); Albumin 3.5 g/dL (3.4-5.0); Alkaline Phosphatase 104 U/L (45-117); Aspartate Aminotransferase 58 U/L (15-37); Blood Urea Nitrogen 9 mg/dL (7-18); Calcium 8.7 mg/dL (8.5-10.1); Carbon Dioxide 14.6 meq/L (21.0-32.0); Chloride 94 meq/L (98-107); Glomerular Filtration Rate 49 mL/min (>89); Sodium 129 meq/L (136-145); Total Protein 7.5 g/dL (6.4-8.2)
[2018-07-06 16:48] LABS: Potassium 4.8 meq/L (3.5-5.1)
[2018-07-06] MEDS ORDERED: MethylPREDNISolone Sod Succinate Inj 125 MG/2 ML Vial IV.PUSH ONE (16:48)
[2018-07-06 16:50] LABS: Glucose,Random 473 mg/dL (74-106); Troponin I 1.94 ng/mL (0.02-0.05)
[2018-07-06] MEDS ORDERED: Heparin 10,000 UNITS/10 ML Vial (for IV use) IV.PUSH STA (16:51)
[2018-07-06] MEDS ORDERED: Heparin Drip 25,000 UNIT/250 ML BAG IV.CONT PRN (16:51)
[2018-07-06] MEDS ORDERED: Bisacodyl 10 MG Supp RECTAL PRN (17:06)
[2018-07-06] MEDS ORDERED: Insulin Regular (For Infusion) 100 UNIT in Sodium Chlor 0.9% Inj 99 ML IV.CONT PRN ×2 (17:09→17:16)
[2018-07-06] MEDS ORDERED: dilTIAZem Inj 125 MG in Sodium Chlor 0.9% Inj 100 ML IV.CONT PRN (17:09)
[2018-07-06] MEDS ORDERED: Potassium Phosphate Inj 30 MMOL in Sodium Chlor 0.9% Inj 250 ML IV.SIG PRN (17:11)
[2018-07-06] MEDS ORDERED: Magnesium Sulfate Inj 4 GM in Sodium Chlor 0.9% Inj 92 ML IV.SIG PRN (17:11)
[2018-07-06] MEDS ORDERED: Potassium Phosphate 500 MG Soluble Tablet PO PRN ×2 (17:11)
[2018-07-06] MEDS ORDERED: Sodium Phosphate Inj 30 MMOL in Sodium Chlor 0.9% Inj 250 ML IV.SIG PRN (17:11)
[2018-07-06] MEDS ORDERED: Potassium Chloride 25 MEQ Effervescent Tablet PO PRN (17:11)
[2018-07-06] MEDS ORDERED: Magnesium Oxide 400 MG Tablet PO PRN (17:11)
[2018-07-06] MEDS ORDERED: Potassium Chlor 40 mEq Premix 40 MEQ/100 ML PIGGYBACK IV.SIG PRN ×2 (17:11)
[2018-07-06] MEDS ORDERED: Potassium Chlor 20 mEq Premix 20 MEQ/100 ML PIGGYBACK IV.SIG PRN ×2 (17:11)
[2018-07-06] MEDS ORDERED: Magnesium Sulfate Inj 2 GM in Sodium Chlor 0.9% Inj 96 ML IV.SIG PRN (17:11)
[2018-07-06] MEDS ORDERED: Aspirin 325 MG Tablet PO ONE (17:19)
[2018-07-06] MEDS ORDERED: Etomidate Inj 20 MG/10 ML Ampul IV.PUSH ONE (17:29)
[2018-07-06] MEDS ORDERED: Succinylcholine Inj 100 MG/5 ML Syringe IV.PUSH ONE (17:29)
[2018-07-06 17:31] LABS: Activated Partial Thrombo Time 28.4 sec (24.3-30.1); INR 1.2 Ratio; Prothrombin Time 11.9 sec (9.8-11.6)
[2018-07-06] MEDS ORDERED: Pantoprazole Inj 40 MG Vial IV.PUSH SCH (18:00)
[2018-07-06] MEDS: Propofol 1000 mg/100 ml Inj 1,000 MG/100 ML BOTTLE IV.CONT PRN ×2 (18:00→20:52)
--- NOTE | 2018-07-06 18:15 | XR ---
EXAM DATE: 07/06/2018 6:04 PM EDT AGE/SEX: 33 years / Female INDICATIONS: Shortness of breath. CLINICAL DATA: This is the patient's initial encounter. Patient reports that signs and symptoms have been present for 1 day and indicates a pain score of Nonresponsive. MEDICAL/SURGICAL HISTORY: . Hypercholesterolemia. Hypertension. Gastroesophageal reflux diseas e. CHF. COPD. Hyperlipidemia. Fibromyalgia. Diabetes. . Tonsillectomy. Left hand. Right ankle COMPARISON: [facility], CHEST PA & LAT, 07/07/2017. . FINDINGS: . Slight cardiomegaly is seen probably technical. Left perihilar opacity is present may represent focal infiltrate, however possibility of slight CHF should be entertained CONCLUSION: Possible mild CHF versus focal infiltrate left perihilar location and the cardiac silhouette appears enlarged. Electronically signed by: Rene Lincoln MD 07/06/2018 6:14 PM EDT
[2018-07-06] MEDS ORDERED: Metoprolol Inj 5 MG/5 ML Vial IV.PUSH SCH (20:30)
[2018-07-06] MEDS ORDERED: Metoprolol Inj 5 MG/5 ML Vial IV.PUSH PRN (20:45)
[2018-07-06] MEDS ORDERED: Senna/Docusate Sodium 8.6/50 MG Tablet PO SCH (21:00)
[2018-07-06 21:05] VITALS: BP 113/81; PULSE 155; RESP 20; O2SAT 96
[2018-07-06 21:11] LABS: Beta Hydroxybutyric Acid 1.11 mmol/L (0.00-0.39); Calcium 7.7 mg/dL (8.5-10.1); Carbon Dioxide 17.7 meq/L (21.0-32.0); Magnesium 1.1 mg/dL (1.5-2.5); Phosphorus 2.1 mg/dL (2.5-4.9)
[2018-07-06 21:13] LABS: Troponin I 2.25 ng/mL (0.02-0.05)
[2018-07-06 21:27] LABS: CKMB Percent 0.7 % (0.0-4.0); Creatine Kinase MB 7.3 ng/mL (0.5-3.6)
[2018-07-06 21:31] LABS: ABG Base Excess -10.3 mmol/L (-2-2); ABG PCO2 37 mmHg (38-42); ABG PO2 65 mmHg (61-120)
[2018-07-06] MEDS ORDERED: Magnesium Sulfate Inj 40 MEQ/10 ML Vial IV.SIG ONE (22:38)
[2018-07-06] MEDS ORDERED: Calcium Chloride Inj 1 GM/10 ML Syringe IV.CONT ONE ×2 (22:38)
[2018-07-06] MEDS ORDERED: Sodium Bicarbonate 8.4% Inj 50 MEQ/50 ML Syringe IV.CONT ONE ×2 (22:38)
[2018-07-06] MEDS ORDERED: Atropine Inj 1 MG/10 ML Syringe IV.PUSH ONE ×2 (22:38)
[2018-07-06] MEDS ORDERED: Flumazenil Inj 1 MG/10 ML Vial IV.PUSH ONE (22:38)
[2018-07-06] MEDS ORDERED: Heparin 10,000 UNITS/10 ML Vial (for IV use) IV.PUSH PRN (22:53)
--- NOTE | 2018-07-06 23:12 | P.PNCC ---
Critical Care Event Note Code activated: Yes Narrative: Called by ED RN about patient being pulseless in the emergency department. On my arrival to emergency department CPR was in active process. Patient was already intubated and bagged. The code was initiated by ED attending. An ACLS protocol was followed. The review of the chart raised suspicion of possible pulmonary embolism. 2 doses of alteplase were administered 15 minutes apart per ACC guidelines during an active CPR. During the 45 minutes of CPR, multiple administrations of epinephrine and sodium bicarbonate as well as other drugs per ACLS protocol the patient never regained spontaneous circulation and was pronounced . Critical care time: 30 - 74 mins
--- NOTE | 2018-07-07 01:53 | MH ---
cc: Ambar Dow MD DATE OF ADMISSION: 07/06/2018 HISTORY OF PRESENT ILLNESS: The patient is a 33-year-old female with a history of schizophrenia and psychosis, who was brought in to [facility] ED for altered mental status. On arrival, the patient was tachycardic with a heart rate of 160s-170s, tachypneic. Her respiratory status declined in the ED and she went from room air oxygen to a nonrebreather. Her laboratory data showed mild acute kidney injury with creatinine level 1.4, hyperglycemia with blood sugar of 473 and anion gap metabolic acidosis with anion gap of 20 and a bicarbonate of 14.6. Also, she was found to have elevated troponin at 1.94 and beta hydroxybutyrate of 1.5. Venous blood gas was performed, which showed a pH of 7.38, CO2 of 26 with a bicarbonate of 15. In the ED, she was initially given adenosine 6 mg IV push, followed by Cardizem 44 mg IV x1 and 3 liters of crystalloids. Due to positive troponins, a heparin drip was ordered by the ED physician. In addition, she was seen by Dr. Mares from cardiology service. She received 2 mg IV push of Ativan. When seen, the patient is tachycardic, tachypneic and unresponsive. She is currently being intubated by the ED physician. The patient was noted to be wheezing and she received Solu-Medrol 125 mg IV push in the ER. PAST MEDICAL HISTORY: Significant for schizophrenia, psychosis, diabetes mellitus and hypertension. PAST SURGICAL HISTORY: Unknown. SOCIAL HISTORY: Smoker. Social drinker. ALLERGIES: PENICILLIN. HOME MEDICATIONS: Include: 1. Trazodone. 2. Metformin. 3. Lisinopril. REVIEW OF SYSTEMS: As per HPI, the rest of the review of systems is unobtainable. PHYSICAL EXAMINATION: GENERAL: A 33-year-old hypertensive with altered mental status being intubated. VITAL SIGNS: Afebrile with temperature 98.4, pulse of 129, respiratory rate in 50s, blood pressure 135/80, saturation 92% on a nonrebreather. HEENT: Atraumatic, normocephalic. Pupils are equal, round, reactive to light and accommodation. Extraocular muscles are intact. Conjunctivae pink. Anicteric sclerae. Oral mucosa with dry mucous membranes. NECK: Supple. No JVD, adenopathy or thyromegaly. Trachea in the midline. CARDIOVASCULAR: Tachycardic. Normal S1, S2. No murmurs, rubs or gallops noted. PULMONARY: Bilateral equal air entry with a few coarse breath sounds. ABDOMEN: Soft, obese, nontender. No distention. Positive bowel sounds. EXTREMITIES: No cyanosis or clubbing. Trace edema. NEUROLOGIC: Unresponsive. LABORATORY DATA: WBC 15.6, hemoglobin 13.5, hematocrit 41, platelet count of 158. Sodium 129, potassium 4.8, chloride 94, CO2 of 14, anion gap 20, BUN 9, creatinine 1.47, glucose 473. Troponin 1.94. AST 58, ALT 45, alkaline phosphatase 104. IMPRESSION: 1. Acute hypoxemic respiratory failure. 2. Encephalopathy. 3. Diabetic ketoacidosis. 4. Anion gap metabolic acidosis. 5. Mild acute kidney injury. 6. Hyponatremia. 7. Elevated troponin. 8. Leukocytosis. 9. History of schizophrenia and psychosis. RECOMMENDATIONS: 1. The patient is being intubated for airway protection. Placed on Diprivan infusion for sedation while intubated. Monitor neuro status closely. Will proceed with CT scan of the brain without contrast. Urine drug screen in the ED is negative. Will continue with vent support and keep sats above 92%. 2. Bronchodilators in the form of DuoNeb every 6 hours and will initiate ICU vent bundle. A CT angiogram of the chest ordered by ED rule out pulmonary embolism. 3. Will obtain a chest x-ray and ABG post-intubation. 4. Monitor heart rate and blood pressure closely and maintain MAP greater than 65 mmHg. Check lactic acid level. Monitor cardiac enzymes with troponins and will obtain a 2-D echo to evaluate left ventricular function. 5. Will give aspirin 325 mg p.o. x1. The patient was seen by Dr. Mares from cardiology service. Further anticoagulation per cardiology. 6. Monitor renal function, I's and O's and electrolyte replacement per protocol. IV fluids per diabetic ketoacidosis protocol. 7. Keep n.p.o. and place on Protonix 40 mg daily for gastrointestinal prophylaxis. 8. Start insulin drip per diabetic ketoacidosis protocol. Monitor electrolytes, BMP, magnesium, phosphorus every 6 hours and beta hydroxybutyrate every 12 hours. Placed on NS at 250 mL an hour and once blood sugar drops below 250, will change to D5NS at 200 an hour. 9. Monitor for signs of infection, which include fever and WBC. Fofana culture if spikes a fever. 10. Monitor CBC and coags. 11. Gastrointestinal prophylaxis with Protonix 40 mg daily and DVT prophylaxis with SCDs. The patient is to resume heparin drip if CT brain is negative for acute process. 12. Further recommendations will be based on hospital course. Critical care time 50 minutes, excluding procedures. Ambar Dow MD AI/lavon , 05:46 PM , 05:59 PM
[2018-07-07] MEDS ORDERED: Chlorhexidine Gluconate 2% 1 Pack (2 Cloths) TOPICAL PRN (04:00)
[2018-07-07] MEDS ORDERED: Chlorhexidine Gluconate 2% 1 Pack (2 Cloths) TOPICAL SCH (04:00)
--- NOTE | 2018-07-07 09:12 | MB ---
cc: Beka Mares MD DATE: 07/06/2018 HISTORY OF PRESENT ILLNESS: Nuha is a 33-year-old lady, currently with altered mental status, tachypnea, hypoxia, tachycardia came in responsive, currently is not responsive. Lack of responsiveness is correlating with hypoxia. She is also noted to be in DKA. Respiratory has been called for stat intubation. The patient is not able to give any history. The remaining history is obtained from the chart. The patient was treated with Cardizem IV, which decreased her heart rate from 170s to 120s, appears to be in sinus tachycardia on the monitor. Initial EKG shows SVT at a rate of 167 beats per minute, which appears to be regular. There are nonspecific ST-T wave changes, possible lead reversal between I and aVL. SOCIAL HISTORY: She smokes daily. Alcohol use is indeterminate. MEDICATIONS: Include, 1. IV Cardizem. 2. Albuterol. 3. Heparin 5000 IV push. 4. Heparin drip. 5. Potassium. ALLERGIES: PENICILLIN-G. PHYSICAL EXAMINATION: VITAL SIGNS: Blood pressure 135/80, pulse 129 and sinus tachycardia, sats 92% on nonrebreather. The patient is tachypneic, respiratory rate is 50, temperature 98.4. GENERAL: She is unresponsive, tachypneic. NECK: Supple. No JVD. No bruit. CARDIOVASCULAR: S1, S2. No murmurs, rubs, gallops. LUNGS: Clear to auscultation bilaterally. ABDOMEN: Soft, nontender, nondistended with positive bowel sounds. EXTREMITIES: No lower extremity edema. LABORATORY DATA: EKG shows SVT at a rate of 157 beats per minute. Lead reversal between I and aVL. Nonspecific ST wave changes. LABORATORY DATA: White count 15.6, hemoglobin 13.5, hematocrit 41.2, platelet count 158. INR is 1.2. Blood gas reportedly venous pH is 7.38. Sodium 129, potassium 4.8, chloride 94, BUN 9, creatinine 1.47, glucose 473, magnesium 1.2. Troponin is 1.94. Beta hydroxybutyrate is 1.50. Toxicology is negative; however, lithium level is pending. DIAGNOSES: 1. Encephalopathy. 2. Altered mental status. 3. Hyperglycemia. 4. Diabetes. 5. Tobacco use. 6. Non-ST elevation myocardial infarction. 7. Elevated white count. 8. Tachypnea. 9. Supraventricular tachycardia. 10. Hyponatremia. 11. Hypomagnesemia. DISCUSSION: At this point in time, I discussed the case with the ER physician, Dr. Munoz and also spoken to Dr. Dow, the dispatch machine runner. Dr. Dow has ordered emergent intubation from respiratory, plan on getting a head CT, checking urine test. Supportive care for possible DKA. She will need her troponins trended. She is not consentable at this point and I suspect that the troponin elevation may be secondary to hypoxia, tachypnea, tachycardia, however, cannot rule out a primary obstructive etiology. We will need to follow her trends in troponin, also follow up the results of her head CT and follow the trends in her hemodynamics and mental status. If the patient's head CT is negative, urine test is negative, we recommend aspirin and heparin. Beka Mares MD AWC/sv/do , 05:38 PM , 05:49 PM
--- NOTE | 2018-07-07 15:22 | ECG ---
Date Performed: 07/06/2018 Time Performed: 13:37:23 PTAGE: 33 years EKG: REGULAR SUPRAVENTRICULAR TACHYCARDIA WITH RATE 167 BORDERLINE RIGHT AXIS DEVIATION NONSPECI FIC ST & T-WAVE CHANGES WHICH MAY BE HEART RATE RELATED Compared to previous tracing, the SVT is new, axis more rightward, ST-T changes somewhat more prominent. ABNORMAL ECG PREVIOUS TRACING : 05/07/2018 08.16 DOCTOR: Jun Reddy Interpretating Date/Time 07/07/2018 15:22:06
== END 2018-07-06 22:39 | disposition expired ==
LOC: NEPE 13:32 → NEDA 17:21
PROVIDERS: ADMIT Internal Medicine Critical Care Medicine; ATTEND Internal Medicine Critical Care Medicine